=== PATIENT | male | born 2005 | race Caucasian/White ===

== ENCOUNTER 2024-05-08 12:43 | Inpatient (IN) ==
[2024-05-08 13:38] LABS: Basophils # (auto) 0.04 K/uL (0.00-0.20); Basophils % (auto) 0.6 %; Eosinophils # (auto) 0.08 K/uL (0.00-0.50); Eosinophils % (auto) 1.2 %; Hematocrit (blood only) 49.8 % (42.0-52.0); Immature Granulocytes # (auto) 0.01 K/uL (0.01-0.20); Immature Granulocytes % (auto) 0.2 %; Lymphocytes # (auto) 2.57 K/uL (1.20-3.40); Lymphocytes % (auto) 39.8 %; Mean Corpuscular Hemoglobin 28.5 pg (25.0-34.0); Mean Corpuscular Hgb Conc 34.1 g/dL (32.0-36.0); Mean Corpuscular Volume 83.4 fL (80.0-100.0); Mean Platelet Volume 9.7 fL (9.4-12.4); Monocytes # (auto) 0.45 K/uL (0.11-0.59); Neutrophils # (auto) 3.31 K/uL (1.40-6.50); Neutrophils % (auto) 51.2 %; Platelet Count 344 K/uL (130-400); RDW Coefficient of Variation 11.4 % (11.5-14.5); RDW Standard Deviation 34.2 fL (36.4-46.3); Red Blood Count 5.97 M/uL (4.70-6.10); White Blood Count 6.46 K/ul (4.8-10.8)
[2024-05-08 13:39] LABS: Appearance Urine Clear (Clear); Bilirubin Urine Negative (Negative); Blood Urine Negative (Negative); Color Urine Yellow; Glucose Urine UA Negative (Negative); Ketones Urine Negative (Negative); Leukocyte Esterase Urine Negative (Negative); Nitrite Urine Negative (Negative); Protein Urine Negative (Negative); Specific Gravity Urine 1.006 (1.000-1.030); Urobilinogen Urine Negative (Negative); pH Urine 7.5 (4.5-7.5)
[2024-05-08 13:53] LABS: Albumin Globulin Ratio 1.9 (0.9-2); Albumin Level 4.6 gm/dl (3.4-5.0); BUN Creatinine Ratio 13.5 (10-20); Bilirubin,Total 0.4 mg/dl (0.2-1.0); Calcium 9.9 mg/dl (8.6-10.3); Creatinine Clr Calc Pharmacy 126.5 ml/min; Globulin 2.4 gm/dl (2.5-4.0); Potassium 3.6 mmol/L (3.5-5.1)
[2024-05-08 13:54] LABS: Acetaminophen < 3 ug/ml (10-30); Salicylate < 3.0 mg/dl (3.0-30)
--- NOTE | 2024-05-08 13:57 | Emergency Department Note ---
Impression & Plan Intentional benzodiazepine overdose, Altered mental status, Alcoholic intoxication ED Provider Note NAME: RAS DAVIS AGE: 18 SEX: M : 2005 ARRIVES VIA: Ambulance INFORMANT: Patient, ED PROVIDER(S): Evy Guerra MD CHIEF COMPLAINT: Overdose HPI: This a 18-year-old man presented for overdose. Patient states that he took over 100 pills of benzodiazepines. He notes that he had a prescription of 120 and took 100 of these. This was an attempt to end his life. He gently also took a few Seroquel. he took a few shots of whiskey. ROS: See above HPI for pertinent positives & negatives. A total of 10 systems reviewed and were otherwise negative. PHYSICAL EXAMINATION: General: Fatigued but arousable Head: Normocephalic and atraumatic Eyes: Normal inspection, extraocular muscles intact, PERRLA Ear, nose, throat: Normal external exam Neck: Normal range of motion Respiratory: lungs clear to auscultation bilaterally Cardiovascular: Regular rate/rhythm, no murmur GI: soft, nontender, no guarding or rebound Extremities: nontender, moves all extremities Neuro: Fatigued, arousable, moves all extremities Skin: Warm, dry, and intact MEDICAL DECISION MAKING: This is a 18-year-old male presenting for intentional overdose. Patient states he took multiple doses of benzodiazepines, over 100 pills. At this time he is fatigued but arousable, able to tell me his name. He is not have chemical airway concerns at this time. Will closely monitor this. Otherwise we will look for coingestions with Tylenol, salicylates. -ECG independently interpreted by me with normal sinus rhythm, rate of 99, normal axis, normal SD, normal QRS, normal QTc, no ST segment elevations consistent with STEMI criteria -Bloodwork is reviewed showing no significant abnormalities. His alcohol level is only slightly elevated at 29. Otherwise he is COVID-19 negative. Negative urinalysis and UDS. -Patient reassessed multiple times without significant change in mentation. He continues to have a stable airway -Patient care discussed with poison control who recommends observation -Discussed care with parents as well by patient current status -Patient will require admission. Discussed care with Dr. Hzael Differential diagnosis: Intentional overdose, benzodiazepine overdose, cervical overdose ER treatment provided: See below Independent History obtained from: Mother, father, remained Diagnostics interpreted by me: ECG: See above Cardiac Monitoring: An order was placed for continuous cardiac monitoring. The monitor shows a rate of 89 with sinus rhythm. Laboratory studies: As stated above and show below. Imaging studies: See below. 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: No Beliefs That Will Affect Care: None Current Living Situation: Family Other Information That Helps Us Care for You: No Feels Safe at Home: Yes Safety Concerns: Feels Safe At This Time Assistive Devices: None Home Meds Home Medications Medication Instructions Recorded Confirmed nortriptyline 25 mg capsule 25 mg PO DAILY 05/08/24 05/08/24 perphenazine 6 mg PO TID 05/08/24 05/08/24 Results & Data (ED) Vital Signs Vital Signs - 24 hr 05/08/24 13:01 05/08/24 13:17 05/08/24 13:18 Temperature 36.5 C Temperature Source Oral Pulse Rate 117 H 98 H Pulse Rate [Apical] 98 H Pulse Rhythm [Apical] Pulse Strength [Apical] Respiratory Rate 13 12 Respiratory Effort / Characteristics Non-Labored Spontaneous Non-Labored Spontaneous Respiratory Depth Normal Normal Respiratory Pattern Regular Regular Blood Pressure 125/69 Blood Pressure [Left Arm] 119/66 Blood Pressure Mean 87 Blood Pressure Mean [Left Arm] 83 Blood Pressure Position Semi-fowlers Blood Pressure Position [Left Arm] Pulse Oximetry 96 95 Oxygen Delivery Method Room Air Room Air Sepsis Recent Fever Within 48 Hours No Sepsis New/Unexplained Change in Mental Status No Sepsis Action Taken by Nursing No Action Required 05/08/24 14:00 05/08/24 14:00 05/08/24 14:30 Temperature Temperature Source Pulse Rate Pulse Rate [Apical] 94 H 80 87 Pulse Rhythm [Apical] Regular Pulse Strength [Apical] Normal Respiratory Rate 16 14 15 Respiratory Effort / Characteristics Non-Labored Non-Labored Spontaneous Non-Labored Spontaneous Respiratory Depth Normal Normal Normal Respiratory Pattern Regular Regular Blood Pressure Blood Pressure [Left Arm] 121/66 121/66 107/51 L Blood Pressure Mean Blood Pressure Mean [Left Arm] 84 84 69 Blood Pressure Position Blood Pressure Position [Left Arm] Semi-fowlers Semi-fowlers Pulse Oximetry 96 95 96 Oxygen Delivery Method Room Air Room Air Room Air Sepsis Recent Fever Within 48 Hours Sepsis New/Unexplained Change in Mental Status Sepsis Action Taken by Nursing 05/08/24 15:30 05/08/24 16:00 Temperature Temperature Source Pulse Rate Pulse Rate [Apical] 84 84 Pulse Rhythm [Apical] Pulse Strength [Apical] Respiratory Rate 16 16 Respiratory Effort / Characteristics Respiratory Depth Respiratory Pattern Blood Pressure Blood Pressure [Left Arm] 99/67 L 104/71 Blood Pressure Mean Blood Pressure Mean [Left Arm] 77 82 Blood Pressure Position Blood Pressure Position [Left Arm] Pulse Oximetry 96 95 Oxygen Delivery Method Room Air Room Air Sepsis Recent Fever Within 48 Hours Sepsis New/Unexplained Change in Mental Status Sepsis Action Taken by Nursing Laboratory Data 05/08/24 13:05 05/08/24 13:05 Lab Results 05/08/24 05/08/24 05/08/24 Range/Units 12:50 13:00 13:05 WBC 6.46 (4.8-10.8) K/ul RBC 5.97 (4.70-6.10) M/uL Hgb 17.0 (14.0-18.0) g/dl Hct 49.8 (42.0-52.0) % MCV 83.4 (80.0-100.0) fL MCH 28.5 (25.0-34.0) pg MCHC 34.1 (32.0-36.0) g/dL RDW Std Deviation 34.2 L (36.4-46.3) fL RDW Coeff of Harvinder 11.4 L (11.5-14.5) % Plt Count 344 (130-400) K/uL MPV 9.7 (9.4-12.4) fL Immature Gran % (Auto) 0.2 % Neut % (Auto) 51.2 % Lymph % (Auto) 39.8 % [place] % (Auto) 7.0 % Eos % (Auto) 1.2 % Baso % (Auto) 0.6 % Neut # (Auto) 3.31 (1.40-6.50) K/uL Lymph # (Auto) 2.57 (1.20-3.40) K/uL [place] # (Auto) 0.45 (0.11-0.59) K/uL Eos # (Auto) 0.08 (0.00-0.50) K/uL Baso # (Auto) 0.04 (0.00-0.20) K/uL Immature Gran # (Auto) 0.01 (0.01-0.20) K/uL ABG pH (7.35-7.45) ABG pCO2 (35-46) mmHg ABG pO2 (80-95) mmHg ABG HCO3 (19-24) mmol/L ABG O2 Saturation (90-95) % ABG Base Excess (-9-1.8) mEq/L Earle Test (Pos) Oxygen Given Sodium 138 (136-145) mmol/L Potassium 3.6 (3.5-5.1) mmol/L Chloride 106 (98-107) mmol/L Carbon Dioxide 22 (21-32) mmol/L Anion Gap 10 (3-11) BUN 12 (6-23) mg/dl Creatinine 0.89 (0.6-1.4) mg/dl Est Cr Clr Drug Dosing 126.5 ml/min eGFR 126.60 BUN/Creatinine Ratio 13.5 (10-20) Glucose 106 H (70-99(Fasting)) mg/dl Calcium 9.9 (8.6-10.3) mg/dl Total Bilirubin 0.4 (0.2-1.0) mg/dl AST 20 (13-39) U/L ALT 28 (7-52) U/L Alkaline Phosphatase 107 H (34-104) U/L Total Protein 7.0 (6.0-8.3) gm/dl Albumin 4.6 (3.4-5.0) gm/dl Globulin 2.4 L (2.5-4.0) gm/dl Albumin/Globulin Ratio 1.9 (0.9-2) TSH 3.000 (0.300-4.500) uIu/ml Urine Color Yellow Urine Appearance Clear (Clear) Urine pH 7.5 (4.5-7.5) Ur Specific [place] 1.006 (1.000-1.030) Urine Protein Negative (Negative) Urine Glucose (UA) Negative (Negative) Urine Ketones Negative (Negative) Urine Blood Negative (Negative) Urine Nitrite Negative (Negative) Urine Bilirubin Negative (Negative) Urine Urobilinogen Negative (Negative) Ur Leukocyte Esterase Negative (Negative) Salicylates < 3.0 L (3.0-30) mg/dl Urine Opiates Screen Neg (Neg) Ur Methadone, Qual Neg (Neg) Urine Fentanyl Screen Neg (Neg) Acetaminophen < 3 L (10-30) ug/ml Urine Barbiturates Neg (Neg) Ur Phencyclidine (PCP) Neg (Neg) U Amphetamin/Meth Scrn Neg (Neg) MDMA (Ecstasy) Screen Neg (Neg) U Benzodiazepines Scrn Neg (Neg) Ur Cocaine Metabolite Neg (Neg) U Marijuana (THC) Screen Neg (Neg) Ethyl Alcohol mg/dL 29.2 H (<10.0) mg/dl SARS-CoV-2, RNA, NAAT NEGATIVE (NEGATIVE) 05/08/24 Range/Units 15:55 WBC (4.8-10.8) K/ul RBC (4.70-6.10) M/uL Hgb (14.0-18.0) g/dl Hct (42.0-52.0) % MCV (80.0-100.0) fL MCH (25.0-34.0) pg MCHC (32.0-36.0) g/dL RDW Std Deviation (36.4-46.3) fL RDW Coeff of Harvinder (11.5-14.5) % Plt Count (130-400) K/uL MPV (9.4-12.4) fL Immature Gran % (Auto) % Neut % (Auto) % Lymph % (Auto) % [place] % (Auto) % Eos % (Auto) % Baso % (Auto) % Neut # (Auto) (1.40-6.50) K/uL Lymph # (Auto) (1.20-3.40) K/uL [place] # (Auto) (0.11-0.59) K/uL Eos # (Auto) (0.00-0.50) K/uL Baso # (Auto) (0.00-0.20) K/uL Immature Gran # (Auto) (0.01-0.20) K/uL ABG pH 7.42 (7.35-7.45) ABG pCO2 40 (35-46) mmHg ABG pO2 90 (80-95) mmHg ABG HCO3 26 H (19-24) mmol/L ABG O2 Saturation 98.6 H (90-95) % ABG Base Excess 1.3 (-9-1.8) mEq/L Earle Test Pos (Pos) Oxygen Given ROOM AIR Sodium (136-145) mmol/L Potassium (3.5-5.1) mmol/L Chloride (98-107) mmol/L Carbon Dioxide (21-32) mmol/L Anion Gap (3-11) BUN (6-23) mg/dl Creatinine (0.6-1.4) mg/dl Est Cr Clr Drug Dosing ml/min eGFR BUN/Creatinine Ratio (10-20) Glucose (70-99(Fasting)) mg/dl Calcium (8.6-10.3) mg/dl Total Bilirubin (0.2-1.0) mg/dl AST (13-39) U/L ALT (7-52) U/L Alkaline Phosphatase (34-104) U/L Total Protein (6.0-8.3) gm/dl Albumin (3.4-5.0) gm/dl Globulin (2.5-4.0) gm/dl Albumin/Globulin Ratio (0.9-2) TSH (0.300-4.500) uIu/ml Urine Color Urine Appearance (Clear) Urine pH (4.5-7.5) Ur Specific [place] (1.000-1.030) Urine Protein (Negative) Urine Glucose (UA) (Negative) Urine Ketones (Negative) Urine Blood (Negative) Urine Nitrite (Negative) Urine Bilirubin (Negative) Urine Urobilinogen (Negative) Ur Leukocyte Esterase (Negative) Salicylates (3.0-30) mg/dl Urine Opiates Screen (Neg) Ur Methadone, Qual (Neg) Urine Fentanyl Screen (Neg) Acetaminophen (10-30) ug/ml Urine Barbiturates (Neg) Ur Phencyclidine (PCP) (Neg) U Amphetamin/Meth Scrn (Neg) MDMA (Ecstasy) Screen (Neg) U Benzodiazepines Scrn (Neg) Ur Cocaine Metabolite (Neg) U Marijuana (THC) Screen (Neg) Ethyl Alcohol mg/dL (<10.0) mg/dl SARS-CoV-2, RNA, NAAT (NEGATIVE) Administered Medications Lactated Ringer's (Lr) 1,000 mls @ 125 mls/hr IV .Q8H SHIRLEY Stop: 05/09/24 18:59 Last Admin: 05/08/24 19:12 Dose: 125 mls/hr Documented By: K[facility] Imaging Data Radiologist's Impression: Chest X-Ray 05/08/24 15:50 EXAM: Radiograph of the Chest 1 View INDICATION: Overdose. TECHNIQUE: Frontal view of the chest. COMPARISON: No relevant prior studies available. FINDINGS: Lungs and pleural spaces: No consolidation or pulmonary edema. No pleural effusion or pneumothorax. Heart: Shape and configuration within normal limits allowing for technique. Mediastinum: Normal contour. Bones/joints: No fracture, erosion or dislocation. Soft tissues: No abnormality noted. No radiopaque foreign body noted. Upper abdomen: No abnormality noted. IMPRESSION: No abnormality noted. ACT 112: Negative or not required by law. Electronically signed by Aditi Stein 05-08-2024 4:34 PM Discharge Plan Visit Data Chief Complaint: Mental Health Evaluation Stated Complaint: OVERDOSE, MHID ED Provider: Evy Guerra Discharge Problem: Intentional benzodiazepine overdose, Altered mental status, Alcoholic intoxication Patient Disposition: Admitted As Inpatient Discharge Instructions Interventions: ED Discharge Assessment Last Done: 05/08/24 17:22
[2024-05-08 14:24] LABS: Amphetamines+Metham, Urine Neg (Neg); Barbiturates, Urine Neg (Neg); Benzodiazepine, Urine Neg (Neg); Cocaine, Urine Neg (Neg); Fentanyl, Urine Neg (Neg); MDMA (Ecstacy), Urine Neg (Neg); Marijuana, Urine Neg (Neg); Methadone, Urine Neg (Neg); Opiate, Urine Neg (Neg); Phencyclidine, Urine Neg (Neg)
--- NOTE | 2024-05-08 15:56 | History & Physical Report ---
Date of Service May 08, 2024 Assessment & Plan (1) Intentional benzodiazepine overdose: Plan: patient's roommate reported that patient took over 100 pills of benzodiazepines intentional - patient lethargic although responds to verbal stimuli on admission - PDMP shows recent prescription of clonazepam 1 mg x 90 days pills 05/03 and lorazepam 0.5 Mg x 60 pills 04/29 - Benzodiazepine Urine level negative, alcohol level 29.2 on admission - EKG showed NSR - ABG WNL, CXR showed no abnormalities - psych consulted - Admit to telemetry with end-tidal CO2 monitoring - ABG prn - repeat EKG in 6-8 hrs as per poison control recommendations - hold psych medications (verified with forest fire prevention specialist psychiatrist) - unconfirmed doses for Seroquel and guanfacine Update poison control with any acute concerns or issues, change in mental status, or change in labs. Plan VTE ppx: SCDs Diet: can have regular diet when more awake, too lethargic at this time Code status: full, unable to discuss with patient given lethargy Dispo: PCU/tele with end tidal CO2 monitoring Admission and Anticipated Discharge Date Admission Date: 05/08/24 History of Present Illness Chief Complaint: mental health eval Primary Care Provider: NO PCP Patient is a 18-year-old male that presents after taking over 100 pills of benzodiazepines. patient was lethargic although responds to verbal stimuli on exam. Patient's mother and father at bedside. He and his family are from the [place] area, he is a [employer] student. His mother stated that she Him to visit on Monday because he started clonazepam and will seemed overmedicated on the phone. She spoke with his psychiatrist who made some medication adjustments and he seemed to be doing better today 05/08. She decided to leave to head back home since he was doing better, he then texted her and said that one of his classes added another test to the semester and he was stressed about it. About an hour later his father received a phone call that was alarming, the patient just kept repeating "I love you dad ". The family and the patient's roommate then found out that he took over 100 benzodiazepines, as per the patient's roommate. They then called 911 and his parents came into town. The patient has never had a suicidal attempt like this in the past. He does have a psychiatrist and therapist in [place] who are both aware of current condition. The patient's mother stated that he had some recent medication changes, in the past few days he went down from 5 medications to 3 medications with an addition of melatonin at night. The following list was provided although not all doses are confirmed: guanfacine, Seroquel, perphenazine, nortriptyline, clonazepam, lorazepam. As per PDMP the patient was prescribed lorazepam 0.5 Mg x 60 pills on 04/29 and clonazepam 1 mg x 90 pills on 05/03. His family was updated at bedside. Spoke with poison control, they were updated regarding patient's status. They recommended telemetry monitoring along with the repeat EKG in 6 to 8 hours. If any changes occur and the patient's lab work or mental status, please call them with an update and for recommendations. Home Medications Medication Instructions Recorded Confirmed Type nortriptyline 25 mg capsule 25 mg PO DAILY 05/08/24 05/08/24 History perphenazine 6 mg PO TID 05/08/24 05/08/24 History Past Med/Surg History Problem List (Updated 05/08/24 @ 19:41 by Evy Guerra MD) Alcoholic intoxication (Acute) Altered mental status (Acute) Intentional benzodiazepine overdose (Acute) Social History Smoking Status: Current every day smoker Tobacco Type: Cigarettes Hx Alcohol Use: Yes Alcohol type: hard liquor Hx Substance Use: No Preferred Language: Frisian Top Spotter Required: No Beliefs That Will Affect Care: None Current Living Situation: Family Other Information That Helps Us Care for You: No Feels Safe at Home: Yes Safety Concerns: Feels Safe At This Time Assistive Devices: None Review of Systems Review of Systems: Unable to perform given patient lethargic Physical Exam Physical Exam: The patient is lethargic, responds to verbal stimuli, in no acute distress. Non- toxic appearing. HEENT- mucous membranes moist. Hearing grossly intact. Heart-normal S1 and S2. No murmurs, rubs or gallops. Lungs-clear bilaterally, no respiratory distress, no accessory muscle use. Abdomen-normal bowel sounds and soft. No ascites noted. Extremities- no clubbing, cyanosis, or edema. Results & Data Results & Data Vital Signs (Past 12 Hours) Vital Signs Temp Pulse Pulse Resp BP BP Pulse Ox 05/08/24 15:30 84 16 99/67 L 96 05/08/24 14:30 87 15 107/51 L 96 05/08/24 14:00 80 14 121/66 95 05/08/24 14:00 94 H 16 121/66 96 05/08/24 13:18 98 H 05/08/24 13:17 98 H 12 119/66 95 05/08/24 13:01 36.5 C 117 H 13 125/69 96 O2 Del Method 05/08/24 15:30 Room Air 05/08/24 14:30 Room Air 05/08/24 14:00 Room Air 05/08/24 14:00 Room Air 05/08/24 13:18 05/08/24 13:17 Room Air 05/08/24 13:01 Room Air Code Status & VTE Plan Code Status Full VTE Prophylaxis Plan VTE Prophylaxis will be ordered: Yes Supervising Physician Co-Signing Physician Notes I personally saw and examined the patient. I independently reviewed the labs, EKG, imaging, problem list, medication list, past medical history and family history. I verified all daniels points and agree with Anupama Schneider PA-C with the following exceptions and/or additions: 18 year old male presents to the ER following intentional overdose of benzodiazepines O/E Alert to voice, not orientated x3, HS RRR, no murmurs, Chest CTAB, Abdo SNT A/P Intentional benzodiazepine overdose - (presumably clonazepam that he was recently prescribed +/- lorazepam prescribed 4 days earlier) currently protecting airway (awakes to voice), ABG without hypercapnia, admit for ongoing end tidal CO2 monitoring, poison control contacted for ongoing advice. Consult psychiatry. PG Care Time/CCT Total # of Minutes Spent Total Time Spent with Patient: Total time spent is greater than 50% in coordination of care (as documented) at patient's floor/unit and/or counseling patient: Coding Level of Care Code 19957 INT INP/OBS CARE 2/55MIN Diagnoses Intentional benzodiazepine overdose T42.4X2A Comment updated family and poison control
[2024-05-08 16:09] LABS: Base Excess ABG 1.3 mEq/L (-9-1.8); HCO3 ABG 26 mmol/L (19-24); Oxygen Saturation ABG 98.6 % (90-95); PCO2 ABG 40 mmHg (35-46); PO2 ABG 90 mmHg (80-95); pH ABG 7.42 (7.35-7.45)
[2024-05-08 16:10] LABS: Allen Test Pos (Pos)
--- NOTE | 2024-05-08 16:35 | XRay Report ---
EXAM: Radiograph of the Chest 1 View INDICATION: Overdose. TECHNIQUE: Frontal view of the chest. COMPARISON: No relevant prior studies available. FINDINGS: Lungs and pleural spaces: No consolidation or pulmonary edema. No pleural effusion or pneumothorax. Heart: Shape and configuration within normal limits allowing for technique. Mediastinum: Normal contour. Bones/joints: No fracture, erosion or dislocation. Soft tissues: No abnormality noted. No radiopaque foreign body noted. Upper abdomen: No abnormality noted. IMPRESSION: No abnormality noted. ACT 112: Negative or not required by law. Electronically signed by Aditi Stein 05-08-2024 4:34 PM
[2024-05-08] MEDS: LACTATED RINGER'S 1,000 ML IV SCH (19:12)
[2024-05-09 06:39] LABS: Hematocrit (blood only) 41.9 % (42.0-52.0); Hemoglobin 14.3 g/dl (14.0-18.0); Mean Corpuscular Hemoglobin 28.5 pg (25.0-34.0); Mean Corpuscular Hgb Conc 34.1 g/dL (32.0-36.0); Mean Corpuscular Volume 83.6 fL (80.0-100.0); Mean Platelet Volume 9.6 fL (9.4-12.4); Platelet Count 253 K/uL (130-400); RDW Coefficient of Variation 11.6 % (11.5-14.5); Red Blood Count 5.01 M/uL (4.70-6.10); White Blood Count 8.76 K/ul (4.8-10.8)
--- NOTE | 2024-05-09 06:54 | Hospitalist Progress Note ---
Date of Service May 09, 2024 Assessment & Plan (1) Acute urinary retention: Plan: One episode of acute urinary retention in the setting of TCA overdose Straight catheter inserted for 1000ccs Continue to monitor Plan Intentional benzodiazepine overdose: Plan: patient's roommate reported that patient took over 100 pills of benzodiazepines intentional - patient lethargic although responds to verbal stimuli on admission - PDMP shows recent prescription of clonazepam 1 mg x 90 days pills 05/03 and lorazepam 0.5 Mg x 60 pills 04/29 - Benzodiazepine Urine level negative, alcohol level 29.2 on admission - EKG showed NSR - ABG WNL, CXR showed no abnormalities - psych consulted - Admit to telemetry with end-tidal CO2 monitoring - ABG prn - repeat EKG in 6-8 hrs as per poison control recommendations - hold psych medications (verified with distribution sales manager psychiatrist) - unconfirmed doses for Seroquel and guanfacine - unconfirmed past psychiatric history Update poison control with any acute concerns or issues, change in mental status, or change in labs. Admission and Anticipated Discharge Date Admission Date: May 08, 2024 Supervising Physician Co-Signing Physician Notes Attending Physician Supervision Note: I independently interviewed and examined the patient and verified the daniels history and physical, reviewed labs and image studies and agree with findings and care plan noted above. 18 year old male presents to the ER following intentional overdose of benzodiazepines AAOx3. Regular rate, no resp distress. Intentional benzodiazepine overdose - (presumably clonazepam that he was recently prescribed +/- lorazepam prescribed 4 days earlier). Evaluated by psychiatry - Will need inpatient [facility] admission - agreeable. No longer on 302. Cannot leave AMA. Subjective Pt is a 18 y/o male with an unclear PMH of psychosis who presents to the hospital for a benzodiazapine overdose. As per his ER admission note, he was brought to the ED after a friend called 911 when the patient took over 100 pills of his prescribed benzodiazepines. He also took a few shots of whisky. This was an attempt to end his life. PDMP shows recent prescription of clonazepam 1 mg x 90 days pills 05/03 and lorazepam 0.5 Mg x 60 pills 04/29 Pt responds to voice but still lethargic. Unable to obtain a reliable ROS at the moment. Per nurse, not able to urinate. Pt voices this biggest concerns is not being able to speak and his dry month and lips. Difficulty swallowing/drinking water. Review of Systems Review of Systems: Unable to obtain due to altered mental status. Physical Exam Physical Exam: General: Patient is lethargic, eyes closed, responds to verbal stimuli, in no acute distress. Non-toxic appearing. HEENT- normocephalic, atraumatic Hearing grossly intact. eyes not evaluated Heart-normal S1 and S2. No murmurs, rubs or gallops. Lungs-clear bilaterally, no respiratory distress, no accessory muscle use. Abdomen-normal bowel sounds and soft. Extremities- no clubbing, cyanosis, or edema. Neuro: Oriented to time, place, person and event, immediate and 1 minute 3 world recall intact. Can count backwards from 100 by 7. Normal ROM, normal strength sternocleidomastoids, triceps, and biceps. Normal sensation to light tough in his face, arms, and legs. Results & Data Results & Data Vital Signs (Past 12 Hours) Vital Signs Temp Pulse Pulse Resp BP Pulse Ox O2 Del Method 05/09/24 03:27 36.3 C L 73 16 147/71 H 96 Room Air 05/08/24 23:21 36.8 C 83 16 127/59 L 94 Room Air 05/08/24 21:42 95 H 05/08/24 19:04 36.6 C 72 16 115/63 96 Room Air Resident Activity Tracking Resident Involvement: Resident Care Provided Care Provided: Adult Hospital Medicine Resident Supervision Co-Signing Physician Notes I have seen this patient personally and agree with student Dr Whitlock about the plan with exceptions noted below: Pt drowsy on exam today in the morning but more awake and alert by the afternoon. Diet ordered for him. Pending psych eval at this point for intentional benzodiazepine overdose with suicidal intention. Otherwise, vitals have remained stable and pt has been fairing well. Will obtain more history as pt continues to become more alert.
[2024-05-09 06:56] LABS: Albumin Globulin Ratio 1.8 (0.9-2); BUN Creatinine Ratio 14.3 (10-20); Bilirubin,Total 0.6 mg/dl (0.2-1.0); Calcium 9.3 mg/dl (8.6-10.3); Creatinine Clr Calc Pharmacy 154.7 ml/min; Globulin 2.2 gm/dl (2.5-4.0); Potassium 3.8 mmol/L (3.5-5.1); Total Protein 6.2 gm/dl (6.0-8.3)
[2024-05-09] MEDS: ONDANSETRON INJ 2 MG/ML 2 ML VIAL IV PRN (08:31)
--- NOTE | 2024-05-09 11:14 | Psychiatric Consultation ---
Date of Consultation May 09, 2024 Impression / Recommendations Mckay Bryan is a 18 yo man and [employer] student admitted medically following an intentional overdose suicide attempt. Diagnostically consistent with MDD in the context of recent stressors including academic pressure. Acute risk of self-harm remains elevated and high given suicide attempt requiring medical admission, history of possible prior attempt, impulsivity, limited insight. Given elevated risk of harm to self they meet criteria for inpatient psychiatric care for diagnostic clarification, safety/stabilization, development of additional coping skills, medication management and disposition/safety planning once medically stable. If they do not agree to voluntary treatment at that time they will meet criteria for 302 status based on severity of suicide attempt and ongoing modifiable risk factors. 302 warrant dispositioned as he is agreeable to voluntary inpatient psychiatric treatment once medically stable. Overall, I spent a total of 60 minutes with this case including review of chart records, review of labwork, direct evaluation of the patient at bedside, counseling the patient, discussion of the patient with the Nurse and with the hospitalist provider, discussion with the psychiatric liason during clinical rounds and documentation in the electronic health record. (1) Intentional benzodiazepine overdose: (2) Suicide attempt: Plan -Continue 1-on-1 for risk of harm to self -Do not discharge or allow to leave AMA -Hold psych medications for now -Once medically cleared plan for psychiatric hospitalization (either 201 or 302 status). Psych History Identifying Data 18 yo man with a history of depression admitted medically following suicide attempt via benzodiazepine overdose. Psychiatry consulted for risk assessment and 302 warrant. Chief Complaint "I took a sh*t ton of pills". History of Present Illness Irvin was admitted after taking an estimated ~100 pills of recent clonazepam and lorazepam scripts (clonazepam 1 mg x 90 days pills filled 05/03 and lorazepam 0.5 Mg x 60 pills filled 04/29 ). His mother had recently visited given his increased depression and anxiety and shortly after she returned home he called his father saying "I love you" raising concern he may have tried to harm himself. Police were called and he was brought to the hospital on a 302 petition. He was unable to be assessed for 302 commitment at the time of admission due to somnolence. This morning he remained very sedated. This afternoon at 1407 notified that he was able to participate in 302 assessment. He was A&Ox3. Confirms he took the pills as a suicide attempt. Remains groggy and prefers not to discuss further details. He was reluctant for inpatient psychiatry but did agree to plan for voluntary inpatient psychiatric treatment once medically stable. His father remained at bedside during this conversation per Irvin's preference and request that he not leave. 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 Required: No Beliefs That Will Affect Care: None Current Living Situation: Family Other Information That Helps Us Care for You: No Feels Safe at Home: Yes Safety Concerns: Feels Safe At This Time Assistive Devices: None Physical Exam Psychiatric: Orientation: alert and oriented x 3 Apperance: + disheveled Eye Contact: + fair eye contact Motor Behavior: + psychomotor retardation Speech: + abnormal rate/rhythm/volume of speech (brief, mumbled) Affect: + anxious affect and + irritable affect Mood: + depressed mood and + anxious mood Thought Process: + circumstantial thought process Thought Content: reality based without delusions Suicidal Thoughts: + reports suicidal thought s (s/p serious attempt) Insight: + limited insight Judgment: + limited judgement Vital Signs (Past 24 Hours): Last Vital Signs Temp 36.7 C 05/09/24 10:51 Pulse 81 05/09/24 10:51 Resp 15 05/09/24 10:51 BP 119/58 L 05/09/24 10:51 Pulse Ox 96 05/09/24 10:51 O2 Del Method Room Air 05/09/24 10:51 Results & Data (PSY) Medications Administered Lactated Ringer's (Lr) 1,000 mls @ 125 mls/hr IV .Q8H SHIRLEY Stop: 05/09/24 18:59 Last Admin: 05/09/24 10:32 Dose: 125 mls/hr Documented By: Infusion: 05/09/24 10:27 Dose: Infused Documented By: Admin: 05/09/24 02:27 Dose: 125 mls/hr Documented By: Infusion: 05/09/24 02:27 Dose: Infused Documented By: Admin: 05/08/24 19:12 Dose: 125 mls/hr Documented By: SERENE Ondansetron HCl (Ondansetron Inj 2 Mg/Ml 2 Ml Vial) 4 mg IV Q6H PRN PRN Reason: Nausea And Vomiting Stop: 06/07/24 17:47 Last Admin: 05/09/24 08:31 Dose: 4 mg Documented By: KRISTIE Coding Level of Care Code 42826 IN/OBS CONSULT LVL 4,60M Diagnoses Intentional benzodiazepine overdose T42.4X2A Suicide attempt T14.91XA
[2024-05-09] MEDS ORDERED: SODIUM CHLORIDE 0.65% NA SOLN 45 ML (OCEAN) PRN (14:34)
--- NOTE | 2024-05-09 15:10 | Electrocardiogram Report ---
Test Reason : Blood Pressure : */* mmHG Vent. Rate : 99 BPM Atrial Rate : 99 BPM P-R Int : 148 ms QRS Dur : 86 ms QT Int : 328 ms P-R-T Axes : 63 58 55 degrees QTcB Int : 420 ms Normal sinus rhythm Normal ECG No previous ECGs available Confirmed by Sanjiv Kelley ([id number]) on 05/09/2024 3:10:07 PM Referred By: Confirmed By: Sanjiv Kelley
--- NOTE | 2024-05-09 15:11 | Electrocardiogram Report ---
Test Reason : Blood Pressure : */* mmHG Vent. Rate : 84 BPM Atrial Rate : 84 BPM P-R Int : 152 ms QRS Dur : 84 ms QT Int : 350 ms P-R-T Axes : 82 56 40 degrees QTcB Int : 413 ms Normal sinus rhythm Normal ECG When compared with ECG of 08-May-2024 13:19, No significant change was found Confirmed by Sanjiv Kelley ([id number]) on 05/09/2024 3:10:59 PM Referred By: REFERRED SELF Confirmed By: Sanjiv Kelley
[2024-05-10 06:17] LABS: Hematocrit (blood only) 41.4 % (42.0-52.0); Hemoglobin 14.2 g/dl (14.0-18.0); Mean Corpuscular Hemoglobin 28.8 pg (25.0-34.0); Mean Corpuscular Hgb Conc 34.3 g/dL (32.0-36.0); Mean Platelet Volume 9.5 fL (9.4-12.4); Platelet Count 249 K/uL (130-400); RDW Coefficient of Variation 11.5 % (11.5-14.5); RDW Standard Deviation 35.2 fL (36.4-46.3); Red Blood Count 4.93 M/uL (4.70-6.10); White Blood Count 5.04 K/ul (4.8-10.8)
[2024-05-10 06:29] LABS: Anion Gap 5 (3-11); BUN Creatinine Ratio 12.4 (10-20); Blood Urea Nitrogen 12 mg/dl (6-23); Calcium 9.2 mg/dl (8.6-10.3); Carbon Dioxide 28 mmol/L (21-32); Chloride 108 mmol/L (98-107); Creatinine Clr Calc Pharmacy 133.9 ml/min; Glucose 94 mg/dl (70-99(Fasting)); Sodium 141 mmol/L (136-145)
--- NOTE | 2024-05-10 06:52 | Hospitalist Progress Note ---
Date of Service May 10, 2024 Assessment & Plan (1) Acute urinary retention: Plan: One episode of acute urinary retention in the setting of TCA overdose Straight catheter inserted for 1000ccs Continue to monitor (2) Benzodiazepine (tranquilizer) overdose: Plan: Intentional benzodiazepine overdose: patient's roommate reported that patient took over 100 pills of benzodiazepines - patient is significantly less lethargic vs admissionn - PDMP shows recent prescription of clonazepam 1 mg x 90 days pills 05/03 and lorazepam 0.5 Mg x 60 pills 04/29 - Benzodiazepine Urine level negative, alcohol level 29.2 on admission - EKG showed NSR - repeat EKG in 6-8 hrs as per poison control recommendations - ABG WNL, CXR showed no abnormalities - Admit to telemetry with end-tidal CO2 monitoring - ABG prn - hold psych medications (verified with well service floorperson psychiatrist) - psych consulted: voluntary admission to inpatient, will enforce 302 if patient tries to leave. Update poison control with any acute concerns or issues, change in mental status, or change in labs. (3) Suicide attempt: Plan: Intentional benzodiazepine overdose. Psych consulted plan for voluntary admission to inpatient, enforce 302 if patient tries to leave. Admission and Anticipated Discharge Date Admission Date: May 08, 2024 Supervising Physician Co-Signing Physician Notes Attending Physician Supervision Note: I independently interviewed and examined the patient and verified the daniels history and physical, reviewed labs and image studies and agree with findings and care plan noted above. 18 year old male presented to the ER following intentional overdose of benzodiazepines No new concerns this am. Dad at bedside. vitals noted nad heent nc at mmm breathing unlabored no accessory muscles good effort skin no rashes no pallor or icterus no resp distress. Intentional benzodiazepine overdose - (clonazepam that he was recently prescribed +/- lorazepam prescribed 4 days earlier). Evaluated by psychiatry - Will need inpatient BHU admission - agreeable. No longer on 302. Cannot leave AMA. Subjective Pt is a 18 y/o male with a past medical history of panic disorder, general anxiety disorder, MDD who presents to the hospital for a benzodiazepine overdose. He was brought to the ED after a friend called 911 when the patient took over 100 pills of his prescribed benzodiazepines. His parents were concerned when his therapist from [place] prescribed him of clonazepam 1 mg x 90 days pills 05/03 and lorazepam 0.5 Mg x 60 pills. They visited this part weekend to check on him but left shortly after. This was a confirmed suicide attempt. Pt is more awake today. Speech is still slurred and is resting with his eyes cl osed. He is feeling more aware today, but is 'out of it'. Is lethargic. Has an appetite and is able to drink on his own. Some drooling out of the side of his mouth when he drinks. Pt is frustrated about the dysarthria Has not been able to urinate on his own, straight catheter >1000 ccs. Endorses nausea when standing/moving. Patients father is in the room and confirmed the patients pmh of MDD, panic disorder and anxiety. Review of Systems Review of Systems: Constitutional: No fevers, chills, normal appetite HEENT: No headache, blurred vision or diplopia, no changes in hearing, no dysphagia CV: No chest pain or tightness, no palpitations, no presyncope or syncope Rest: No SOB or dyspnea, no wheezing, no accessory muscle use GI: No vommitting, diarrhea, constipation or abdominal pain : As per HPI MSK: No pain, numbness, or tingling. Physical Exam Physical Exam: General:Lethargic, oriented, no acute distress, HEENT: Normocephalic, PEERL, moist oral mucosa, Cardio: Regular rate and rhythm, no murmur. Resp:Lungs clear to auscultation b/l, no wheezes or rhonchi, GI: Soft and nontender, nondistended, bowel sounds active Skin: Warm, pink, dry, Neuro: Mood-affect congruence. Mentation: Can follow a conversation. Able to spell world backwards, immediate 3 word recall. Oriented to person, place, and event. CN: II-XII intact, no focal deficits Sensation to light touch on face, arms, and legs bilateral and equal throughout Strength 5/5 throughout Results & Data Results & Data Vital Signs (Past 12 Hours) Vital Signs Temp Pulse Pulse Resp BP BP Pulse Ox 05/10/24 05:00 37.5 C 66 18 126/58 L 96 05/10/24 01:15 37.5 C 76 18 104/55 L 95 05/09/24 21:56 96 H 05/09/24 19:34 38.0 C H 68 19 97/61 L 94 O2 Del Method 05/10/24 05:00 Room Air 05/10/24 01:15 Room Air 05/09/24 21:56 05/09/24 19:34 Room Air Resident Activity Tracking Resident Involvement: Resident Care Provided Care Provided: Adult Hospital Medicine Resident Supervision Co-Signing Physician Notes I have personally evaluated this patient and agree with student Dr Whitlock with exceptions noted below; Pt more awake and alert today. Pending inpatient psych placement.
--- NOTE | 2024-05-11 06:52 | Hospitalist Progress Note ---
Date of Service May 11, 2024 Assessment & Plan (1) Acute urinary retention: (2) Benzodiazepine (tranquilizer) overdose: (3) Suicide attempt: Plan Pt is a 18 y/o male with a past medical history of panic disorder, general anxiety disorder, MDD who presents to the hospital for an intentional benzodiazepine overdose. Acute urinary retention - since admission has had several episodes of remarkable urinary retention requiring several straight caths, now with seymour since 05/11 - most likely related directly to multidrug overdose, suspect anticholinergic toxicity - may attempt void trial today or tomorrow Intentional drug overdose, multiple drugs Suicide attempt - patient's roommate reported that patient took over 100 pills of benzodiazepines, pt states he took probably 6 different drugs in large amounts - PDMP shows recent prescription of clonazepam 1 mg x 90 days pills 05/03 and lorazepam 0.5 Mg x 60 pills 04/29 - EKGs have been stable, pt has been lethargic/sedated but otherwise with stable vitals throughout hospital stay - psych consulted and pt is voluntary to inpatient psych admission, but if he should try to leave he will be 302 - pt clearly notes that overdose was a definite suicide attempt Admission and Anticipated Discharge Date Admission Date: May 08, 2024 Supervising Physician Co-Signing Physician Notes Attending Physician Supervision Note: I independently interviewed and examined the patient and verified the daniels history and physical, reviewed labs and image studies and agree with findings and care plan noted above. 18 year old male presented to the ER following intentional overdose of benzodiazepines and possibly other meds Continues to be sleepy. Easily arousable. vitals noted nad heent nc at mmm breathing unlabored no accessory muscles good effort skin no rashes no pallor or icterus no resp distress. Intentional benzodiazepine overdose - (clonazepam that he was recently prescribed +/- lorazepam prescribed 4 days earlier) and ?other medications. Evaluated by psychiatry - Will need inpatient BHU admission - agreeable. No longer on 302. Cannot leave AMA. Urinary retention - seymour placed. Likely from meds he overdosed on. consider voiding trial once sedation clears. Subjective Today, pt awake and alert but fatigued appearing. Fully oriented and aware of his situation. He states medically he is feeling fine. No nausea or vomiting, no chest pain or SOB. He states with the repeat caths for urine he never had any sensation like he needed to go pee. He states on monday he took "probably 6 different medications and a ton of them." He states that he last spoke to his therapist prior to admission last Monday. He states that he had never been on a benzo in the past but when he called his psychiatrist saying his anxiety had gotten very had that was what they decided to give him. He states his psychiatrist told him to split the clonazepam 1mg tablets into 1/4 slices and only take 1/4 of a tablet at a time, "so I figured if I took all of them as full tablets that I would ." No further concerns noted by him at this time. Review of Systems Review of Systems: Per HPI. Physical Exam Physical Exam: General:Alert and oriented, no acute distress, fatigued appearing and sluggish this morning HEENT: Normocephalic, moist oral mucosa, Cardio: Regular rate and rhythm, no murmur, Resp:Lungs clear to auscultation b/l, no wheezes or rhonchi, Skin: Warm, pink, dry, Results & Data Results & Data Vital Signs (Past 12 Hours) Vital Signs Temp Pulse Pulse Resp BP Pulse Ox O2 Del Method 05/11/24 03:24 36.6 C 61 16 120/59 L 97 Room Air 05/10/24 22:55 36.9 C 67 17 120/58 L 96 Room Air 05/10/24 21:45 67 05/10/24 19:29 36.9 C 76 15 127/62 96 Room Air Resident Activity Tracking Resident Involvement: Resident Care Provided Care Provided: Adult Hospital Medicine
[2024-05-11 07:09] LABS: BUN Creatinine Ratio 18.1 (10-20); Calcium 9.5 mg/dl (8.6-10.3); Creatinine Clr Calc Pharmacy 154.3 ml/min; Potassium 3.9 mmol/L (3.5-5.1)
[2024-05-11] MEDS: POLYETHYLENE (MIRALAX) 17 GM PACK PO SCH (09:52)
[2024-05-11] MEDS: POLYETHYLENE (MIRALAX) 17 GM PACK PO ONE (17:20)
[2024-05-12 06:07] LABS: BUN Creatinine Ratio 14.3 (10-20); Calcium 9.5 mg/dl (8.6-10.3); Creatinine Clr Calc Pharmacy 155.3 ml/min; Potassium 3.8 mmol/L (3.5-5.1)
--- NOTE | 2024-05-12 06:59 | Hospitalist Progress Note ---
Date of Service May 12, 2024 Assessment & Plan (1) Acute urinary retention: (2) Benzodiazepine (tranquilizer) overdose: (3) Suicide attempt: Plan Pt is a 18 y/o male with a past medical history of panic disorder, general anxiety disorder, MDD who presents to the hospital for an intentional benzodiazepine overdose. Acute urinary retention - since admission has had several episodes of remarkable urinary retention requiring several straight caths, now with seymour since 05/11 - most likely related directly to multidrug overdose, suspect anticholinergic toxicity - attempt void trial today Intentional drug overdose, multiple drugs Suicide attempt - patient's roommate reported that patient took over 100 pills of benzodiazepines, pt states he took probably 6 different drugs in large amounts - PDMP shows recent prescription of clonazepam 1 mg x 90 days pills 05/03 and lorazepam 0.5 Mg x 60 pills 04/29 - EKGs have been stable, pt has been lethargic/sedated but otherwise with stable vitals throughout hospital stay - psych consulted and pt is voluntary to inpatient psych admission, but if he should try to leave he will be 302 - pt clearly notes that overdose was a definite suicide attempt Admission and Anticipated Discharge Date Admission Date: May 08, 2024 Supervising Physician Co-Signing Physician Notes Attending Physician Supervision Note: I independently interviewed and examined the patient and verified the daniels history and physical, reviewed labs and image studies and agree with findings and care plan noted above. 18 year old male presented to the ER following intentional overdose Able to hold conversations much better but still falls asleep easily. vitals noted nad heent nc at mmm breathing unlabored no accessory muscles good effort skin no rashes no pallor or icterus no resp distress. Intentional benzodiazepine overdose - (seroquel, clonazepam, lorazepam, perphenazine). (His home meds also include nortriptyline but declined taking it). Evaluated by psychiatry - Will need inpatient BHU admission - agreeable. No longer on 302. Cannot leave AMA. Urinary retention - Likely from meds he overdosed on (05/08). initially straight cath used. seymour placed 05/10. Failed voiding trail. will consult urology and place seymour again. Subjective Today, pt states he is feeling well. He states he has maybe urinated a bit so far since the seymour was removed. No complaints otherwise. No nausea or vomiting, no chest pain or SOB. No stated concerns at this point. Review of Systems Review of Systems: Per HPI. Physical Exam Physical Exam: General:Alert and oriented, no acute distress,fatigued and sluggish still today HEENT: Normocephalic, moist oral mucosa, Cardio: Regular rate and rhythm, no murmur, Resp:Lungs clear to auscultation b/l, no wheezes or rhonchi, GI: Soft and nontender, active bowel sounds Skin: Warm, pink, dry, Results & Data Results & Data Vital Signs (Past 12 Hours) Vital Signs Temp Pulse Pulse Resp BP BP Pulse Ox 05/12/24 03:29 36.8 C 64 16 108/49 L 95 05/11/24 22:56 36.8 C 71 16 121/62 96 05/11/24 21:55 69 O2 Del Method 05/12/24 03:29 Room Air 05/11/24 22:56 Room Air 05/11/24 21:55 Resident Activity Tracking Resident Involvement: Resident Care Provided Care Provided: Adult Hospital Medicine
--- NOTE | 2024-05-12 08:05 | Electrocardiogram Report ---
Test Reason : Blood Pressure : */* mmHG Vent. Rate : 76 BPM Atrial Rate : 76 BPM P-R Int : 160 ms QRS Dur : 90 ms QT Int : 354 ms P-R-T Axes : 46 41 34 degrees QTcB Int : 398 ms Normal sinus rhythm Nonspecific ST abnormality Abnormal ECG When compared with ECG of 09-May-2024 18:18, No significant change was found Confirmed by Otilio Acevedo ([id number]) on 05/12/2024 8:05:38 AM Referred By: REFERRED SELF Confirmed By: Otilio Acevedo
--- NOTE | 2024-05-12 08:06 | Electrocardiogram Report ---
Test Reason : Blood Pressure : */* mmHG Vent. Rate : 59 BPM Atrial Rate : 59 BPM P-R Int : 196 ms QRS Dur : 92 ms QT Int : 392 ms P-R-T Axes : 80 59 42 degrees QTcB Int : 388 ms Sinus bradycardia Early repolarization Otherwise normal ECG When compared with ECG of 10-May-2024 19:19, No significant change was found Confirmed by Otilio Acevedo ([id number]) on 05/12/2024 8:06:10 AM Referred By: REFERRED SELF Confirmed By: Otilio Acevedo
--- NOTE | 2024-05-12 08:07 | Electrocardiogram Report ---
Test Reason : Blood Pressure : */* mmHG Vent. Rate : 61 BPM Atrial Rate : 61 BPM P-R Int : 198 ms QRS Dur : 92 ms QT Int : 384 ms P-R-T Axes : 75 55 40 degrees QTcB Int : 386 ms Normal sinus rhythm Early repolarization When compared with ECG of 11-May-2024 06:22, No significant change was found Confirmed by Otilio Acevedo ([id number]) on 05/12/2024 8:07:31 AM Referred By: REFERRED SELF Confirmed By: Otilio Acevedo
[2024-05-12] MEDS: ACETAMINOPHEN 325 MG TAB PO PRN (16:35)
[2024-05-13] MEDS: Patient's ALLERGY Info needs ENTERED STA (01:25)
--- NOTE | 2024-05-13 06:45 | Hospitalist Progress Note ---
Date of Service May 13, 2024 Assessment & Plan (1) Acute urinary retention: (2) Benzodiazepine (tranquilizer) overdose: (3) Suicide attempt: Plan Pt is a 18 y/o male with a past medical history of panic disorder, general anxiety disorder, MDD who presents to the hospital for an intentional benzodiazepine overdose. Acute urinary retention - since admission has had several episodes of remarkable urinary retention requiring several straight caths, now with seymour since 05/11 - most likely related directly to multidrug overdose, suspect anticholinergic toxicity - seymour replaced yesterday due to continued retention, urology consulted and pending Intentional drug overdose, multiple drugs Suicide attempt - patient's roommate reported that patient took over 100 pills of benzodiazepines, pt states he took probably 6 different drugs in large amounts - PDMP shows recent prescription of clonazepam 1 mg x 90 days pills 05/03 and lorazepam 0.5 Mg x 60 pills 04/29 - EKGs have been stable, pt has been lethargic/sedated but otherwise with stable vitals throughout hospital stay - psych consulted and pt is voluntary to inpatient psych admission, but if he should try to leave he will be 302 - pt clearly notes that overdose was a definite suicide attempt Admission and Anticipated Discharge Date Admission Date: May 08, 2024 Supervising Physician Co-Signing Physician Notes I personally examined the patient and verified all daniels points of history and exam, discussed case, and agree with decision making with Dr Harris still feels woozy and dizzy, blurry vision. also still urinary retention. vitals noted, looks mildly unsteady pupils still somewhat dilated. breathing unlabored no distress, mentation intact. Intentional benzodiazepine overdose - -will need inpatient -psychiatry following -dispo once he voids Urinary retention - -still with seymour cath -blame anticholinergics -hopefully voids soon otherwise as above Subjective Today, pt states he is feeling fine. No chest pain or SOB. Good appetite. He states he is just a little annoyed at having the seymour again. No further concerns noted at this time. Review of Systems Review of Systems: Per HPI. Physical Exam Physical Exam: General:Alert and oriented, no acute distress, fatigued but more lively today HEENT: Normocephalic, moist oral mucosa, Cardio: Regular rate and rhythm, no murmur, Resp:Lungs clear to auscultation b/l, no wheezes or rhonchi, GI: Soft and nontender, active bowel sounds Skin: Warm, pink, dry, Results & Data Results & Data Vital Signs (Past 12 Hours) Vital Signs Temp Pulse Pulse Resp BP BP Pulse Ox 05/13/24 03:30 36.8 C 67 18 104/59 L 97 05/12/24 22:58 36.7 C 62 16 109/56 L 96 05/12/24 21:40 61 05/12/24 18:51 36.8 C 60 19 132/73 97 O2 Del Method 05/13/24 03:30 Room Air 05/12/24 22:58 Room Air 05/12/24 21:40 05/12/24 18:51 Room Air Resident Activity Tracking Resident Involvement: Resident Care Provided Care Provided: Adult Hospital Medicine
[2024-05-13 08:02] LABS: BUN Creatinine Ratio 10.5 (10-20); Calcium 9.8 mg/dl (8.6-10.3); Creatinine Clr Calc Pharmacy 132.9 ml/min; Potassium 3.9 mmol/L (3.5-5.1)
--- NOTE | 2024-05-13 09:42 | Urology Consultation ---
Date of Consultation May 13, 2024 Assessment & Plan (1) Acute urinary retention: 18 yo/M admitted for intentional overdose with benzodiazepines. He developed urinary retention requiring straight catheterization and then Hudson catheter. Urology is consulted regarding urinary retention. Urinary retention likely secondary to medication effect and constipation He failed voiding trial yesterday, catheter replaced Recommend maintain Hudson catheter for now Recommend bowel regimen Continue ambulation Ideally maintain the catheter for a few more days Can attempt voiding trial again in a few days if constipation has resolved If he is unable to void, then replace the catheter Continue other medical management per hospital and psych services will sign off, recall as needed History of Present Illness Attending Physician: Donaldo Norton, History of Present Illness This is a 18-year-old male who was admitted on 05/08/2024 for intentional overdose with benzodiazepines. Since admission, he required multiple straight catheterizations. Hudson catheter was placed on 05/10. He had a void trial on 05/12, but was unable to void and catheter was replaced. Urology is consulted for urinary retention. Patient is currently afebrile with stable vitals. Lab work reviewedcreatinine 0.95 today, WBC 5.04, Hgb 14.2 (05/10). Urinalysis on arrival was negative. Patient seen and examined at bedside this morning. He is resting in bed, arouses easily to speech. 1:1 sitter at bedside. He reports episode of emesis overnight, some nausea at present. Reports low appetite. Has not had a substantial BM since arrival. Denies pain at present. Generally tolerating Hudson. No dysuria or hematuria. He has been ambulating. No fever or chills. No prior history of urinary retention. No prior urology evaluations. Allergies Allergy/AdvReac Type Severity Reaction Status Date / Time No Known Allergies Allergy Unverified 05/12/24 16:17 Home Medications Medication Instructions Recorded Confirmed Type nortriptyline 25 mg capsule 25 mg PO DAILY 05/08/24 05/08/24 History perphenazine 6 mg PO TID 05/08/24 05/08/24 History Patient History Social History Smoking Status: Current every day smoker Tobacco Type: Cigarettes Hx Alcohol Use: Yes Alcohol type: hard liquor Hx Substance Use: No Preferred Language: East [place]orese Communication Ability: Impaired Toe Stripper Required: No Beliefs That Will Affect Care: None Current Living Situation: Family Other Information That Helps Us Care for You: No Feels Safe at Home: Yes Safety Concerns: Feels Safe At This Time Assistive Devices: None Review of Systems Review of Systems: All systems reviewed & are unremarkable except as noted in HPI & below Physical Exam Constitutional: well developed and well nourished; no acute distress Respiratory: normal respiratory effort; no respiratory distress and no labored breathing Gastrointestinal (Abdomen): Inspection/Auscultation: abdomen normal to inspection Musculoskeletal: Head/Neck/Chest: normocephalic Neurologic: moves all extremities and awake Psychiatric: Orientation: alert and oriented x 3 Genitourinary: Hudson draining clear yellow urine Results & Data Vital Signs (Past 12 Hours) Vital Signs Temp Pulse Pulse Resp BP BP Pulse Ox 05/13/24 07:02 36.6 C 65 16 105/57 L 96 05/13/24 03:30 36.8 C 67 18 104/59 L 97 05/12/24 22:58 36.7 C 62 16 109/56 L 96 05/12/24 21:40 61 O2 Del Method 05/13/24 07:02 Room Air 05/13/24 03:30 Room Air 05/12/24 22:58 Room Air 05/12/24 21:40 PG Care Time/CCT Total # of Minutes Spent Total Time Spent with Patient: Total time spent is greater than 50% in coordination of care (as documented) at patient's floor/unit and/or counseling patient: Coding Level of Care Code 84839 IN/OBS CONSULT LVL 3,45M Diagnoses Acute urinary retention R33.8
--- NOTE | 2024-05-13 13:41 | Electrocardiogram Report ---
Test Reason : Blood Pressure : */* mmHG Vent. Rate : 63 BPM Atrial Rate : 63 BPM P-R Int : 182 ms QRS Dur : 96 ms QT Int : 382 ms P-R-T Axes : 76 48 27 degrees QTcB Int : 390 ms Poor data quality, interpretation may be adversely affected Normal sinus rhythm Early repolarization When compared with ECG of 12-May-2024 06:07, No significant change was found Confirmed by Otilio Acevedo ([id number]) on 05/13/2024 1:41:00 PM Referred By: REFERRED SELF Confirmed By: Otilio Acevedo
--- NOTE | 2024-05-13 13:41 | Electrocardiogram Report ---
Test Reason : Blood Pressure : */* mmHG Vent. Rate : 77 BPM Atrial Rate : 77 BPM P-R Int : 188 ms QRS Dur : 86 ms QT Int : 358 ms P-R-T Axes : 87 74 68 degrees QTcB Int : 405 ms Normal sinus rhythm Possible Acute pericarditis Abnormal ECG When compared with ECG of 08-May-2024 19:32, No significant change was found Confirmed by Otilio Acevedo ([id number]) on 05/13/2024 1:40:46 PM Referred By: REFERRED SELF Confirmed By: Otilio Acevedo
--- NOTE | 2024-05-13 13:41 | Electrocardiogram Report ---
Test Reason : Blood Pressure : */* mmHG Vent. Rate : 80 BPM Atrial Rate : 80 BPM P-R Int : 144 ms QRS Dur : 82 ms QT Int : 360 ms P-R-T Axes : 74 66 45 degrees QTcB Int : 415 ms Normal sinus rhythm Possible Left atrial enlargement Early repolarization Borderline ECG When compared with ECG of 08-May-2024 16:34, No significant change was found Confirmed by Otilio Acevedo ([id number]) on 05/13/2024 1:40:32 PM Referred By: REFERRED SELF Confirmed By: Otilio Acevedo
--- NOTE | 2024-05-13 17:16 | Billing Data ---
Date of Service May 13, 2024 Coding Level of Care Code 23025 SUB INP/OBS CARE MIN
--- NOTE | 2024-05-13 17:17 | Billing Data ---
Date of Service May 13, 2024 Coding Level of Care Code 54971 SUB INP/OBS CARE MIN
[2024-05-13] MEDS: POLYETHYLENE (MIRALAX) 17 GM PACK PO SCH (22:02)
[2024-05-14 06:39] LABS: BUN Creatinine Ratio 11.6 (10-20); Calcium 9.8 mg/dl (8.6-10.3); Creatinine Clr Calc Pharmacy 146.8 ml/min; Potassium 4.1 mmol/L (3.5-5.1)
--- NOTE | 2024-05-14 06:41 | Hospitalist Progress Note ---
Date of Service May 14, 2024 Assessment & Plan (1) Acute urinary retention: (2) Benzodiazepine (tranquilizer) overdose: (3) Suicide attempt: Plan Pt is a 18 y/o male with a past medical history of panic disorder, general anxiety disorder, MDD who presents to the hospital for an intentional benzodiazepine overdose. Acute urinary retention - since admission has had several episodes of remarkable urinary retention requiring several straight caths, now with seymour since 05/11 - most likely related directly to multidrug overdose, suspect anticholinergic toxicity - urology consulted; will reattempt void trial today, Intentional drug overdose, multiple drugs Suicide attempt - patient's roommate reported that patient took over 100 pills of benzodiazepines, pt states he took probably 6 different drugs in large amounts - PDMP shows recent prescription of clonazepam 1 mg x 90 days pills 05/03 and lorazepam 0.5 Mg x 60 pills 04/29 - EKGs have been stable, pt has been lethargic/sedated but otherwise with stable vitals throughout hospital stay - psych consulted and pt is voluntary to inpatient psych admission, but if he should try to leave he will be 302 - pt clearly notes that overdose was a definite suicide attempt Admission and Anticipated Discharge Date Admission Date: May 08, 2024 Supervising Physician Co-Signing Physician Notes I personally examined the patient and verified all daniels points of history and exam, discussed case, and agree with decision making with Dr Harris see dc summary done by me as progress note attestation surrogate. thought pt was leaving but psych requested one more night of medical observation re urinary retention Subjective Today, pt states he is feeling okay. No nausea or vomiting. No chest pain or SOB. No concerned noted, still just a bit frustrated at still having a seymour in place. Otherwise, he states he is going fine. Review of Systems Review of Systems: Per HPI. Physical Exam Physical Exam: General:Alert and oriented, no acute distress, fatigued appearing this morning HEENT: Normocephalic, moist oral mucosa, Cardio: Regular rate and rhythm, no murmur, Resp:Lungs clear to auscultation b/l, no wheezes or rhonchi, GI: Soft and nontender, active bowel sounds Skin: Warm, pink, dry, Results & Data Results & Data Vital Signs (Past 12 Hours) Vital Signs Temp Pulse Pulse Resp BP Pulse Ox O2 Del Method 05/13/24 23:14 36.5 C 60 13 115/63 96 Room Air 05/13/24 22:00 65 05/13/24 19:22 36.8 C 66 12 121/61 96 Room Air Resident Activity Tracking Resident Involvement: Resident Care Provided Care Provided: Adult Hospital Medicine
--- NOTE | 2024-05-14 16:08 | Discharge Summary ---
Discharge Summary Date of Service May 14, 2024 Principal Dx & Hospital Course #1 = Principal Diagnosis (1) Acute urinary retention: (2) Benzodiazepine (tranquilizer) overdose: (3) Suicide attempt: Plan Pt is a 18 y/o male with a past medical history of panic disorder, general anxiety disorder, MDD who presents to the hospital for an intentional benzodiazepine overdose. Acute urinary retention - almost certainly due to medication effects from overdose - took several days, but finally able to void in large volumes with essentially no PVR (~20ml per bladder scan) - stable for BHU/no need for ongoing cath Intentional drug overdose, multiple drugs Suicide attempt - patient's roommate reported that patient took over 100 pills of benzodiazepines, pt states he took probably 6 different drugs in large amounts - PDMP shows recent prescription of clonazepam 1 mg x 90 days pills 05/03 and lorazepam 0.5 Mg x 60 pills 04/29 - EKGs have been stable, pt has been lethargic/sedated but otherwise with stable vitals throughout hospital stay - psych consulted and pt is voluntary to inpatient psych admission, but if he should try to leave he will be 302 - pt clearly notes that overdose was a definite suicide attempt - for ongoing inpatient psych care Notes For Next Care Provider Medication Changes From Visit medication changes per inpatient psychiatry team Admission HPI Per Admitting Provider Patient is a 18-year-old male that presents after taking over 100 pills of benzodiazepines. patient was lethargic although responds to verbal stimuli on exam. Patient's mother and father at bedside. He and his family are from the [place] area, he is a [employer] student. His mother stated that she Him to visit on Monday because he started clonazepam and will seemed overmedicated on the phone. She spoke with his psychiatrist who made some medication adjustments and he seemed to be doing better today 05/08. She decided to leave to head back home since he was doing better, he then texted her and said that one of his classes added another test to the semester and he was stressed about it. About an hour later his father received a phone call that was alarming, the patient just kept repeating "I love you dad ". The family and the patient's roommate then found out that he took over 100 benzodiazepines, as per the patient's roommate. They then called 911 and his parents came into town. The patient has never had a suicidal attempt like this in the past. He does have a psychiatrist and therapist in [place] who are both aware of current condition. The patient's mother stated that he had some recent medication changes, in the past few days he went down from 5 medications to 3 medications with an addition of melatonin at night. The following list was provided although not all doses are confirmed: guanfacine, Seroquel, perphenazine, nortriptyline, clonazepam, lorazepam. As per PDMP the patient was prescribed lorazepam 0.5 Mg x 60 pills on 04/29 and clonazepam 1 mg x 90 pills on 05/03. His family was updated at bedside. Spoke with poison control, they were updated regarding patient's status. They recommended telemetry monitoring along with the repeat EKG in 6 to 8 hours. If any changes occur and the patient's lab work or mental status, please call them with an update and for recommendations. Updated Medication List Medication Instructions Recorded Confirmed Type nortriptyline 25 mg capsule 25 mg PO DAILY 05/08/24 05/08/24 History perphenazine 6 mg PO TID 05/08/24 05/08/24 History Hospital Stay Data Consultations 05/08/24 15:44 ED Decision to Admit Stat 05/08/24 17:48 Consult Psychiatry Routine 05/12/24 13:28 Consult Urology Routine Pending Results Patient Have Any Pending Studies at Discharge: No Discharge Instructions Given to Patient (Per Discharging Provider) ongoing medication management per behavioral health team Total Time Total Time Spent Total Time Spent (In Minutes): <30
--- NOTE | 2024-05-14 16:12 | Billing Data ---
Date of Service May 14, 2024 Coding Level of Care Code 03402 IN/OBS DISCH 30 MIN/LESS
[2024-05-15 06:50] LABS: Calcium 9.8 mg/dl (8.6-10.3); Potassium 4.2 mmol/L (3.5-5.1)
[2024-05-15 06:56] LABS: BUN Creatinine Ratio 13.8 (10-20); Creatinine Clr Calc Pharmacy 134.3 ml/min
[2024-05-15 07:59] VITALS: TEMP 97.9
--- NOTE | 2024-05-15 08:09 | Discharge Summary ---
Date of Service May 15, 2024 Admission HPI Per Admitting Provider Patient is a 18-year-old male that presents after taking over 100 pills of benzodiazepines. patient was lethargic although responds to verbal stimuli on exam. Patient's mother and father at bedside. He and his family are from the [place] area, he is a [employer] student. His mother stated that she Him to visit on Monday because he started clonazepam and will seemed overmedicated on the phone. She spoke with his psychiatrist who made some medication adjustments and he seemed to be doing better today 05/08. She decided to leave to head back home since he was doing better, he then texted her and said that one of his classes added another test to the semester and he was stressed about it. About an hour later his father received a phone call that was alarming, the patient just kept repeating "I love you dad ". The family and the patient's roommate then found out that he took over 100 benzodiazepines, as per the patient's roommate. They then called 911 and his parents came into town. The patient has never had a suicidal attempt like this in the past. He does have a psychiatrist and therapist in [place] who are both aware of current condition. The patient's mother stated that he had some recent medication changes, in the past few days he went down from 5 medications to 3 medications with an addition of melatonin at night. The following list was provided although not all doses are confirmed: guanfacine, Seroquel, perphenazine, nortriptyline, clonazepam, lorazepam. As per PDMP the patient was prescribed lorazepam 0.5 Mg x 60 pills on 04/29 and clonazepam 1 mg x 90 pills on 05/03. His family was updated at bedside. Spoke with poison control, they were updated regarding patient's status. They recommended telemetry monitoring along with the repeat EKG in 6 to 8 hours. If any changes occur and the patient's lab work or mental status, please call them with an update and for recommendations. Admission Exam Per Admitting Provider The patient is lethargic, responds to verbal stimuli, in no acute distress. Non- toxic appearing. HEENT- mucous membranes moist. Hearing grossly intact. Heart-normal S1 and S2. No murmurs, rubs or gallops. Lungs-clear bilaterally, no respiratory distress, no accessory muscle use. Abdomen-normal bowel sounds and soft. No ascites noted. Extremities- no clubbing, cyanosis, or edema. Principal Diagnosis Multiple drug overdose, intentional Discharge Exam General:Alert and oriented, no acute distress, fatigued appearing this morning HEENT: Normocephalic, moist oral mucosa, Cardio: Regular rate and rhythm, no murmur, Resp:Lungs clear to auscultation b/l, no wheezes or rhonchi, GI: Soft and nontender, active bowel sounds Skin: Warm, pink, dry, Discharge Data Allergies Allergy/AdvReac Type Severity Reaction Status Date / Time No Known Allergies Allergy Unverified 05/12/24 16:17 Consultations 05/08/24 15:44 ED Decision to Admit Stat 05/08/24 17:48 Consult Psychiatry Routine 05/12/24 13:28 Consult Urology Routine Hospital Course (1) Acute urinary retention: (2) Benzodiazepine (tranquilizer) overdose: (3) Suicide attempt: Plan Pt is a 18 y/o male with a past medical history of panic disorder, general anxiety disorder, MDD who presents to the hospital for an intentional benzodiazepine overdose. Intentional drug overdose, multiple drugs Suicide attempt - patient's roommate reported that patient took over 100 pills of benzodiazepines, pt states he took probably 6 different drugs in large amounts - PDMP shows recent prescription of clonazepam 1 mg x 90 days pills 05/03 and lorazepam 0.5 Mg x 60 pills 04/29 - EKGs have been stable, pt has been lethargic/sedated but otherwise with stable vitals throughout hospital stay - psych consulted and pt is voluntary to inpatient psych admission, but if he should try to leave he will be 302 - pt clearly notes that overdose was a definite suicide attempt Acute urinary retention, resolved - since admission has had several episodes of remarkable urinary retention requiring several straight caths, now with seymour since 05/11 - most likely related directly to multidrug overdose, suspect anticholinergic toxicity - urology consulted; reattempted void trial yesterday, pt was able to void on own Total Time Total Time Spent Total Time Spent (In Minutes): <30 Discharge Plan Discharge Items Patient Disposition: Transfer Behavioral Health Fac Reason For Visit: BENZO OD Discharge Diagnosis: Depression Activity: Resume your previous activity Non-emergency contact: Primary Care Provider and Psychiatrist Call non-emergency contact if: you have any medication questions and your symptoms worsen Follow-up/Referrals: Luis Mariscal MD [Primary Care Provider] - Diet: Regular Addtl Attending Provider Instructions: Ongoing medication management per behavioral health team Pending Studies at Discharge: No Stand-Alone Forms: My [facility] Medications and DC Order Prescriptions: Discontinued nortriptyline 25 mg Capsule 25 mg PO DAILY perphenazine 6 mg PO TID Discharge Orders: Discharge Order (Routine); Ordered 05/14/24 Ordered By: Donaldo Norton Admission Data Admit Date/Time: 05/08/24 16:03 Attending Provider: Donaldo Norotn Admit Provider: Joaquin Hazel Primary Care Provider: Luis Mariscal Other Providers: Joaquin Hazel; Arleth Bhandari; Randal Castellano; Patricia Paige; Kylie Renae; Martin Dailey; Miasha Bhatia; Rojelio Bob Supervising Physician Co-Signing Physician Notes I personally examined the patient and verified all daniels points of history and exam, discussed case, and agree with decision making with Dr Harris feeling ok had a little trouble voiding overnight but no need for cath was able to void appropriately after a little while vitals noted nad heent nc at mmm breathing unlabored no accessory muscles good effort urinary retention - resolving - did struggle a little overnight but no need for intervention - ?residual anticholinergic effect from OD vs sympathetic output from stress in the situation - either way safe for U no ongoing need for cath (obviously call our team if any problems recur or new problems arise - but doubtful to happen) depression/polysubstance OD - per BHU otherwise as above Resident Activity Tracking Resident Involvement: Resident Care Provided Care Provided: Adult Hospital Medicine
--- NOTE | 2024-05-15 08:59 | Billing Data ---
Date of Service May 15, 2024 Coding Level of Care Code 54902 IN/OBS DISCH 30 MIN/LESS
--- NOTE | 2024-05-15 09:00 | Billing Data ---
Date of Service May 14, 2024 Coding Level of Care Code 00700 SUB INP/OBS CARE MIN Comment disregard 238 from 05/14
[2024-05-15 12:26] VITALS: BP 142/83; PULSE 98; RESP 21; O2SAT 96
--- NOTE | 2024-05-15 12:26 | History & Physical ---
Date of Service May 15, 2024 Impression / Recommendations Mckay Bryan is a 18 yo man and [employer] student admitted medically following an intentional overdose suicide attempt. Diagnostically consistent with MDD in the context of recent stressors including academic pressure. Acute risk of self-harm remains elevated and high given suicide attempt requiring medical admission, history of possible prior attempt, impulsivity, limited insight. Given elevated risk of harm to self they meet criteria for inpatient psychiatric care for diagnostic clarification, safety/stabilization, development of additional coping skills, medication management and disposition/safety planning once medically stable. If they do not agree to voluntary treatment at that time they will meet criteria for 302 status based on severity of suicide attempt and ongoing modifiable risk factors. (1) Intentional benzodiazepine overdose: (2) Suicide attempt: Plan -Continue 1-on-1 for risk of harm to self -Do not discharge or allow to leave AMA -Hold psych medications for now -Once medically cleared plan for psychiatric hospitalization (either 201 or 302 status). Psychiatric History Identifying Data RAS DAVIS is a 18-year-old M who currently lives in [] [alone] with [], has a history of [], and was admitted on 05/08/24 16:03 on a [201 voluntary] [302 involuntary] commitment for []. Chief Complaint "[]". Allergies Allergy/AdvReac Type Severity Reaction Status Date / Time No Known Allergies Allergy Unverified 05/12/24 16:17 Home Medications Medication Instructions Recorded Confirmed Type nortriptyline 25 mg capsule 25 mg PO DAILY 05/08/24 05/08/24 History perphenazine 6 mg PO TID 05/08/24 05/08/24 History Smoking Use Smoking Status: Current every day smoker Personal History Beliefs That Will Affect Care: None Patient History Social History Smoking Status: Current every day smoker Tobacco Type: Cigarettes Hx Alcohol Use: Yes Alcohol type: hard liquor Hx Substance Use: No Preferred Language: Mohawk Communication Ability: Impaired Public Policy Professor Required: No Beliefs That Will Affect Care: None Current Living Situation: Family Other Information That Helps Us Care for You: No Feels Safe at Home: Yes Safety Concerns: Feels Safe At This Time Assistive Devices: None Physical Exam Vital Signs (Past 24 Hours): Last Vital Signs Temp 36.6 C 05/15/24 09:30 Pulse 67 05/15/24 09:30 Resp 19 05/15/24 09:30 BP 108/63 05/15/24 09:30 Pulse Ox 94 05/15/24 09:30 O2 Del Method Room Air 05/15/24 07:58 Results & Data ([facility]) Laboratory Results Laboratory Results - last 24 hr 05/14/24 05/15/24 Unknown 05:56 Sodium 142 Potassium 4.2 Chloride 108 H Carbon Dioxide 26 Anion Gap 8 BUN 13 Creatinine 0.94 Est Cr Clr Drug Dosing 134.3 eGFR 119.76 BUN/Creatinine Ratio 13.8 Glucose 86 Calcium 9.8 SARS-CoV-2, RNA, NAAT NEGATIVE Current Inpatient Medications Current Inpatient Medications: Current Inpatient Medications Acetaminophen (Acetaminophen 325 Mg Tab) 650 mg PO Q4H PRN PRN Reason: Pain Stop: 06/11/24 16:05 Last Admin: 05/14/24 20:33 Dose: 650 mg Ondansetron HCl (Ondansetron Inj 2 Mg/Ml 2 Ml Vial) 4 mg IV Q6H PRN PRN Reason: Nausea And Vomiting Stop: 06/07/24 17:47 Last Admin: 05/13/24 09:16 Dose: 4 mg Polyethylene Glycol (Polyethylene (Miralax) 17 Gm Pack) 17 gm PO BID SHIRLEY Stop: 06/12/24 20:59 Last Admin: 05/15/24 08:54 Dose: 17 gm Sodium Chloride (Sodium Chloride 0.65% Na Soln 45 Ml ([place])) 2 sprays NA Q3H PRN PRN Reason: Congestion Stop: 06/08/24 14:33
== END 2024-05-15 15:11 | DRG 918 ==
LOC: SUATTDRO → ED 12:43 → 2E 16:03 → SUATTDRO 16:03 → 2E 17:22

== ENCOUNTER 2024-05-15 12:36 | Inpatient (IN) ==
[2024-05-15] MEDS ORDERED: MAGNESIUM HYDROXIDE SUSP 30 ML UDC PO PRN (13:03)
[2024-05-15] MEDS ORDERED: ALUMINUM/MAGNESIUM SUSP 30 ML UDC PO PRN (13:03)
[2024-05-15] MEDS ORDERED: ACETAMINOPHEN 325 MG TAB PO PRN (13:03)
[2024-05-15] MEDS ORDERED: SODIUM CHLORIDE 0.65% NA SOLN 45 ML (OCEAN) PRN (13:03)
[2024-05-15] MEDS ORDERED: hydrOXYzine HCl 25 MG TAB PO PRN ×2 (13:03)
[2024-05-15] MEDS ORDERED: BISMUTH SUBSALICYLATE 262 MG CHEW PO PRN (13:03)
[2024-05-15 17:17] VITALS: RESP 16
[2024-05-15] MEDS: Patient's HEIGHT &/or WEIGHT Needed STA (18:13)
[2024-05-15] MEDS: POLYETHYLENE (MIRALAX) 17 GM PACK PO SCH (20:41)
[2024-05-16] MEDS: PSYLLIUM or GUAR GUM FIBER 4GM PACKET PO SCH (09:03)
[2024-05-16] MEDS: ARIPiprazole 5 MG TAB PO SCH (12:06)
--- NOTE | 2024-05-16 14:46 | History & Physical ---
Date of Service May 16, 2024 Impression / Recommendations Mckay DAVIS is a [employer] Sophomore 18-year-old M, has a history of social anxiety, panic attacks, depression, suicide attempt, and was admitted on 05/15/24 15:11 on a 201 voluntary commitment for suicide attempt via ingestion of 100+ Clonazepam pills. Initially stabilized on medical floor and transferred to [facility]. Presentation consistent with suicide attempt via Benzodiazepine ingestion, social anxiety disorder, panic attacks, MDD. Recent suicide attempt occurred in the context of academic stressors, chronic SI, and intoxication with prescribed benzodiazepines. Patient has had multiple medication trials with limited benefit. Presents poor self esteem, anxiety about social competence, and related panic attacks in social settings. Pt is at high risk of suicide given recurrent attempts, continued planning, poor insight into condition, and poor judgement. Labs reviewed: TSH, CBC, BMP, LFTs within expected limits. EKG unremarkable. Plan to start Abilify, medication s/e and adverse effects discussed with patient and agreeable. May benefit from [place] initiation for suicidality and Prazosin for nightmares. Recommend IOP and safety planning. MNPR due to social anxiety with panic symptoms Overall, I spent a total of 70 minutes with this case including review of chart records, nursing report, review of lab work, direct evaluation of the patient at bedside, counseling the patient, multidisciplinary team meeting, orders, and documentation in the electronic health record. (1) Suicide attempt: (2) Benzodiazepine (tranquilizer) overdose: (3) Social anxiety disorder: (4) Panic attacks: (5) MDD (major depressive disorder), recurrent episode, severe: (6) Cluster B personality disorder: (7) Asthma: Plan 05/16/2024: The patient was admitted to the [facility] ([facility] mental health unit) on q15 min checks (behavioral with suicide precautions) for safety. The patient will participate in group, recreational, and milieu therapies and will be offered additional individual and family sessions as clinically appropriate. -Start Aripiprazole 5mg daily Inventory Assets Strengths: medication adherent, intelligent Needs: improved self esteem, dec risk taking behaviors Suicide Risk Level Suicide Risk Level: High-Moderate (q15 min suicide checks) Risk Factors Assessment Male: Yes : Yes Do You Have Access To A Gun?: No Health Problems: Yes (asthma) Mental Health Diagnoses: Yes Substance Use Disorders: No Previous Attempt: Yes Family History of Suicide: No Previous Psychiatric Hospitalization: No Hopelessness: Yes Protective Factors Assessment Uatsdin Beliefs: No : No Responsible for Young Children: No Employed: No Stable Relationships: Yes Supportive Family: Yes Good Rapport with Provider: Yes Absence of Any Risk Factors Above: No Psychiatric History Identifying Data RAS DAVIS is a [employer] [facility] Sophomore 18-year-old M, has a history of social anxiety, panic attacks, depression, suicide attempt, and was admitted on 05/15/24 15:11 on a 201 voluntary commitment for suicide attempt via ingestion of 100+ Clonazepam pills. Initially stabilized on medical floor and transferred to [facility]. Chief Complaint "Took a shit ton of meds" History of Present Illness The patient reports having a "rough week" where he was worried about his academics because of a "string of bad tests" and forgetting that he had a test next week he was not prepared for. His mom came in that week and he noted feeling very low. Prior to admission he took whiskey and then the pills and then called for an ambulance after. He reports past suicide attempt 2 years ago where he attempted to hang himself and got close however "could not knock the chair". He was intoxicated at this time as well. Reports depression and anxiety since 2019 when COVID for started and his parents . Since then has complained of low mood, poor self-esteem, difficulties with sleep. Endorses fair appetite and fair concentration. Complains of an escalation of night terrors where he wakes up emotionally distraught with increased heart rate and shortness of breath. Reports difficulty in public situations where he feels constantly judged. Complains of panic attacks in social settings with shortness of breath, mental doom, and feels paralyzed. Reports panic symptoms and social anxiety impacts his relationships and social functioning. He often ruminates about past embarrassments, social failures, academic performance. He puts himself in "painful situations" and has considered self-harm however does not have the guts to do it. He questions his purpose and identity. Social problems have gotten worse since going to college because of the new environment. Previous home medications of Clonazepam 1mg TID, Lorazepam 0.5mg BID PRN. Recent nortriptyline 25 mg, perphenazine 6 mg 3 times daily, guanfacine 1 mg at bedtime, Seroquel at bedtime all discontinued prior to admission and placed on benzodiazepines only. Patient reports past trials of multiple SSRIs (worsening hand tremor), SNRI (worsening motor tics), beta-blockers contraindicated due to asthma. Has not tried lithium. [place] sedated on Klonopin. Past medications include: Fluoxetine (worsening whole body tics), sertraline (worsening whole body tics), bupropion, duloxetine (worsening tics), mirtazapine (worsening tics), nortriptyline (25 mg low dose, may nightmares worse), quetiapine, lamotrigine, buspirone, hydroxyzine, lorazepam, clonazepam, melatonin, guanfacine (longstanding medication and effective for tics was recently discontinued). He grew up near [place]. Has 2 sisters who are supportive. Endorses a stable childhood with no neglect. He denies physical, emotional, sexual abuse. He reports having a high ego in middle school and often bullied others; as he grew up he judges himself for this became more self-conscious. Reports bullying others for acceptance. Suspected depression in father however untreated. He denies drug use currently, social drinker when drink a week. Historical marijuana and one time hallucinogen use. Parents in 2019. 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 He denies having any legal problems. Is not spiritual. No past intensive outpatient program. Has outpatient psychiatry and therapy in [place]. Past Psychiatric History Current Psychiatric Diagnosis: Anxiety Disorder Do You Have Access To A Gun?: No History of Previous Suicide Attempt: Yes Allergies Allergy/AdvReac Type Severity Reaction Status Date / Time No Known Allergies Allergy Unverified 05/12/24 16:17 Family History Family History of: None Family Mental Health History Comment: denies history, possibly father undiagnosed depression Alcohol History Hx of Alcohol Use Over the Past 12 Months: Yes (socially, once/week) AUDIT Total Score: 6 Smoking Use Have You Smoked or Used Tobacco Products in the Last 30 Days: Yes tobacco type: cigarettes Smoking Status: Light tobacco smoker Smoking packs per day: 0.25 Substance History Hx of Prescription Med Misuse Over the Past 12 Months: No Hx of Over the Counter Med Misuse Over the Past 12 Months: No Hx of Inhalent Misuse Over the Past 12 Months: No Hx of Organic Substance Use Over the Past 12 Months: No Hx of Illegal Substances/Street Drug Use Over Past 12 Months: No Problems as a Result of Past Substance Use: None Identified Personal History Living Arrangements: Apartment Highest Grade Completed: High School Graduate Highest Grade Completed Comment: [employer] at [employer].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 Marital Status: Single Number Of Children: 0 Beliefs That Will Affect Care: None Patient History Social History Smoking Status: Light tobacco smoker Tobacco Type: Cigarettes Hx Alcohol Use: Yes Alcohol type: hard liquor Hx Substance Use: No Preferred Language: Mongolian Communication Ability: Effective Aircraft Engine Mechanic Required: No Beliefs That Will Affect Care: None Current Living Situation: Family Feels Safe at Home: Yes Gender Identity: Male Assistive Devices: None Physical Exam Mental Examination: Appearance: Well Groomed Eye Contact: Maintains Eye Contact Motor Behavior: Unremarkable Speech: Normal Mood: Depressed and Anxious Affect: Anxious and Constricted Thought Process: Intact Thought Content: Linear and Racing Hallucinations: None Insight: Poor Judgement: Poor Vital Signs (Past 24 Hours): Last Vital Signs Temp 36.7 C 05/16/24 06:50 Pulse 81 05/16/24 06:51 Resp 16 05/16/24 06:50 BP 118/79 05/16/24 06:51 Pulse Ox 98 05/15/24 16:19 O2 Del Method Room Air 05/15/24 16:19 Exam Statement: A physical exam was performed in the ED for the purposes of medical clearance. I accept that physical as correct and adequate for the purposes of the inpatient physical exam. Results & Data ([facility]) Current Inpatient Medications Current Inpatient Medications: Current Inpatient Medications Acetaminophen (Acetaminophen 325 Mg Tab) 650 mg PO Q4H PRN PRN Reason: Headache or Minor Fever Stop: 06/14/24 13:02 Al Hydrox/Mg Hydrox/Simethicone (Aluminum/Magnesium Susp 30 Ml Udc) 30 ml PO Q4H PRN PRN Reason: GI Upset Stop: 06/14/24 13:02 Aripiprazole (Aripiprazole 5 Mg Tab) 5 mg PO QAM SHIRLEY Stop: 06/15/24 10:59 Last Admin: 05/16/24 12:06 Dose: 5 mg Bismuth Subsalicylate (Bismuth Subsalicylate 262 Mg Chew) 2 tab PO Q30M PRN PRN Reason: Loose Stool/Diarrhea Stop: 06/14/24 13:02 Lorazepam (Lorazepam 1 Mg Tab) 1 mg PO Q6 PRN PRN Reason: Anxiety Stop: 06/14/24 15:44 Magnesium Hydroxide (Magnesium Hydroxide Susp 30 Ml Udc) 30 ml PO DAILY PRN PRN Reason: Constipation Stop: 06/14/24 13:02 Polyethylene Glycol (Polyethylene (Miralax) 17 Gm Pack) 17 gm PO BID SHIRLEY Stop: 06/14/24 20:59 Last Admin: 05/16/24 09:03 Dose: 17 gm Psyllium Hydrophilic Mucilloid (Psyllium Or Guar Gum Fiber 4gm Packet) 4 gm PO QAM SHIRLEY Stop: 06/15/24 08:59 Last Admin: 05/16/24 09:03 Dose: 4 gm Sodium Chloride (Sodium Chloride 0.65% Na Soln 45 Ml ([place])) 1 - 2 sprays NA PRN PRN PRN Reason: Nasal Dryness/Congestion Stop: 06/14/24 13:02
[2024-05-16] MEDS: LORazepam 1 MG TAB PO PRN (21:18)
--- NOTE | 2024-05-17 13:56 | Psychiatric Progress Note ---
Date of Service May 17, 2024 Impression / Recommendations Mckay DAVIS is a [employer] Sophomore 18-year-old M, has a history of social anxiety, panic attacks, depression, suicide attempt, and was admitted on 05/15/24 15:11 on a 201 voluntary commitment for suicide attempt via ingestion of 100+ Clonazepam pills. Initially stabilized on medical floor and transferred to [facility]. Presentation consistent with suicide attempt via Benzodiazepine ingestion, social anxiety disorder, panic attacks, MDD. Recent suicide attempt occurred in the context of academic stressors, chronic SI, and intoxication with prescribed benzodiazepines. Patient has had multiple medication trials with limited benefit. Presents poor self esteem, anxiety about social competence, and related panic attacks in social settings. Pt is at high risk of suicide given recurrent attempts, continued planning, poor insight into condition, and poor judgement. A: Patient presents with a brighter affect and is engaging in good self care. Continues to have sleep impairments. Concern for uncontrolled anxious ruminations, identity formation, and poor coping skills contributing to thoughts of suicide. Patient was counseled about the importance of CBT and recommended intensive outpatient program. Plan to start lithium at a low dose for suicidality; medication side effects and adverse effects discussed with patient and agreeable. He is tolerating Abilify well and we will plan to continue. We will draw baseline metabolic labs and vitamin labs. MNPR due to social anxiety with panic symptoms Overall, I spent a total of 35 minutes with this case including review of chart records, nursing report, review of lab work, direct evaluation of the patient at bedside, counseling the patient, multidisciplinary team meeting, orders, and documentation in the electronic health record. (1) Suicide attempt: (2) Benzodiazepine (tranquilizer) overdose: (3) Social anxiety disorder: (4) Panic attacks: (5) MDD (major depressive disorder), recurrent episode, severe: (6) Cluster B personality disorder: (7) Asthma: Plan 05/17/2024: Start lithium 150 mg daily. Labs for fasting lipid profile, hemoglobin A1c, vitamin D, B12. 05/16/2024: The patient was admitted to the [facility] ([facility] mental [facility]) on q15 min checks (behavioral with suicide precautions) for safety. The patient will participate in group, recreational, and milieu therapies and will be offered additional individual and family sessions as clinically appropriate. -Start Aripiprazole 5mg daily Inventory Assets Strengths: medication adherent, intelligent Needs: improved self esteem, dec risk taking behaviors Suicide Risk Level Suicide Risk Level: High-Moderate (q15 min suicide checks) Risk Factors Assessment Male: Yes : Yes Do You Have Access To A Gun?: No Health Problems: Yes (asthma) Mental Health Diagnoses: Yes Substance Use Disorders: No Previous Attempt: Yes Family History of Suicide: No Previous Psychiatric Hospitalization: No Hopelessness: Yes Protective Factors Assessment Scientology Beliefs: No : No Responsible for Young Children: No Employed: No Stable Relationships: Yes Supportive Family: Yes Good Rapport with Provider: Yes Absence of Any Risk Factors Above: No Interval History Identifying Information RAS DAVIS is a [employer] Sophomore 18-year-old M, has a history of social anxiety, panic attacks, depression, suicide attempt, and was admitted on 05/15/24 15:11 on a 201 voluntary commitment for suicide attempt via ingestion of 100+ Clonazepam pills. Initially stabilized on medical floor and transferred to [facility]. Chief Complaint "Poor coping with stress" Review of Systems Sleep Information Total Hours of Sleep: 7.25 Meal Information Percent Meal Consumed - Breakfast: 100 Percent Meal Consumed - Lunch: 100 Percent Meal Consumed - Dinner: 100 Subjective Subjective Patient was seen & assessed and interval progress reviewed with treatment team nursing and social work Nursing reports patient has been isolated with limited interaction with his peers. Prior to interview he is seen in the group room talking to one individual peer and listening to his favorite song. He is smiling and appears c heerful. He reports disrupted sleep with 8-10 awakenings however could go back to sleep. Engaging in self-care with daily hygiene practices. He reports a history of "poor coping with stress" and it is hard for him to escape this anxiety. Reports last week he was "marching to ". When discussing suicide he reports he hates pain and potential disability that can occur after a suicide attempt and that is what is holding him from committing suicide. He denies current suicidal ideation. He reports a loss of perspective when he is stressed out and that he sees things as "black and white thinking". Reports current conflict of switching his major and is considering doing academic psychology. He reports limited engagement in counseling and uses it more of a "recap" then to work on his thoughts. Has been at the same therapist for 3 years and sees him as his best friend. He denies having night terrors last night. Physical Exam Mental Examination Appearance: Well Groomed Eye Contact: Maintains Eye Contact Motor Behavior: Unremarkable Speech: Normal Mood: Euthymic and Calm Affect: Appropriate and Congruent Thought Process: Intact Thought Content: Linear and Racing Hallucinations: None Insight: Poor Judgement: Poor Vital Signs (Past 24 Hours) Last Vital Signs Temp 36.9 C 05/17/24 06:40 Pulse 84 05/17/24 06:41 Resp 16 05/17/24 06:40 BP 130/89 05/17/24 06:41 Pulse Ox 98 05/15/24 16:19 O2 Del Method Room Air 05/15/24 16:19 Results & Data ([facility]) Current Inpatient Medications Current Inpatient Medications: Current Inpatient Medications Acetaminophen (Acetaminophen 325 Mg Tab) 650 mg PO Q4H PRN PRN Reason: Headache or Minor Fever Stop: 06/14/24 13:02 Al Hydrox/Mg Hydrox/Simethicone (Aluminum/Magnesium Susp 30 Ml Udc) 30 ml PO Q4H PRN PRN Reason: GI Upset Stop: 06/14/24 13:02 Aripiprazole (Aripiprazole 5 Mg Tab) 5 mg PO QAM SHIRLEY Stop: 06/15/24 10:59 Last Admin: 05/17/24 10:11 Dose: 5 mg Bismuth Subsalicylate (Bismuth Subsalicylate 262 Mg Chew) 2 tab PO Q30M PRN PRN Reason: Loose Stool/Diarrhea Stop: 06/14/24 13:02 [place] Carbonate ([place] Carbonate 300 Mg Tab) 150 mg PO HS SHIRLEY Stop: 06/16/24 21:59 Lorazepam (Lorazepam 1 Mg Tab) 1 mg PO Q6 PRN PRN Reason: Anxiety Stop: 06/14/24 15:44 Last Admin: 05/16/24 21:18 Dose: 1 mg Magnesium Hydroxide (Magnesium Hydroxide Susp 30 Ml Udc) 30 ml PO DAILY PRN PRN Reason: Constipation Stop: 06/14/24 13:02 Psyllium Hydrophilic Mucilloid (Psyllium Or Guar Gum Fiber 4gm Packet) 4 gm PO QAM SHIRLEY Stop: 06/15/24 08:59 Last Admin: 05/17/24 10:12 Dose: 4 gm Sodium Chloride (Sodium Chloride 0.65% Na Soln 45 Ml ([place])) 1 - 2 sprays NA PRN PRN PRN Reason: Nasal Dryness/Congestion Stop: 06/14/24 13:02 Mental Health & Subst Abuse Tx Psychiatrist Name of Psychiatrist: Dr. Marie Psychiatrist's Date Of Appointment With Psychiatric Provider: 05/27/24 Time of Appointment with Psychiatrist: 11:30AM Therapist Name of Therapist: Samuel Harding Fixed Route Bus Operator Name of Fixed Route Bus Operator: Denies Post Discharge Appointments Primary Care Physician Name Of Family Doctor/PCP: ASHLEIGH
[2024-05-17] MEDS: LITHIUM CARBONATE 300 MG TAB PO SCH (21:03)
[2024-05-18 08:06] LABS: Chol HDL Ratio 6.3 (0-5)
[2024-05-18 08:50] LABS: Estimated Average Glucose 97 mg/dl
--- NOTE | 2024-05-18 09:38 | Psychiatric Progress Note ---
Date of Service May 18, 2024 Impression / Recommendations Mckay DAVIS is a [facility] Sophomore 18-year-old M, has a history of social anxiety, panic attacks, depression, suicide attempt, and was admitted on 05/15/24 15:11 on a 201 voluntary commitment for suicide attempt via ingestion of 100+ Clonazepam pills. Initially stabilized on medical floor and transferred to [facility]. Presentation consistent with suicide attempt via Benzodiazepine ingestion, social anxiety disorder, panic attacks, MDD. Recent suicide attempt occurred in the context of academic stressors, chronic SI, and intoxication with prescribed benzodiazepines. Patient has had multiple medication trials with limited benefit. Presents poor self esteem, anxiety about social competence, and related panic attacks in social settings. Pt is at high risk of suicide given recurrent attempts, continued planning, poor insight into condition, and poor judgement. A: Mood improving a bit, reports lessening of anxiety but seems to be minimizing severity of recent attempt. 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 Tolerating medications so far, he states a preference to keep doses as low as possible, likes current effects. Reviewed labwork-HbA1c, cholesterol stable, reviewed LDL high but reasonable to remain on Abilify, discussed recommendation to have monitored closely over time to ensure this doesn't worsen. Discussed recommendation for IOP to help with mood symptoms and anxiety, he will think about this. Discussed medication options for sleep, he consents to trazodone for sleep/depression. Reviewed side effects including but not limited to: sedation, increased appetite/weight gain, priapism. MNPR due to social anxiety with panic symptoms Overall, I spent a total of 45 minutes on this case including meeting with the patient, reviewing the chart, nursing report, multidisciplinary team meeting, orders, and documentation. (1) Suicide attempt: (2) Benzodiazepine (tranquilizer) overdose: (3) Social anxiety disorder: (4) Panic attacks: (5) MDD (major depressive disorder), recurrent episode, severe: (6) Cluster B personality disorder: (7) Asthma: Plan 05/18/2024: Start trazodone 50mg HS and decrease lorazepam to 0.5mg prn for anxiety 05/17/2024: Start lithium 150 mg daily. Labs for fasting lipid profile, hemoglobin A1c, vitamin D, B12. 05/16/2024: The patient was admitted to the [facility] ([facility] inpatient mental health unit) on q15 min checks (behavioral with suicide precautions) for safety. The patient will participate in group, recreational, and milieu therapies and will be offered additional individual and family sessions as clinically appropriate. -Start Aripiprazole 5mg daily Inventory Assets Strengths: medication adherent, intelligent Needs: improved self esteem, dec risk taking behaviors Suicide Risk Level Suicide Risk Level: High-Moderate (q15 min suicide checks) (s/p serious suicide attempt with some ambivalence but mood improving, denies current SI, feels safe in the hospital, feels able to ask for support) Risk Factors Assessment Male: Yes : Yes Do You Have Access To A Gun?: No Health Problems: Yes (asthma) Mental Health Diagnoses: Yes Substance Use Disorders: No Previous Attempt: Yes Family History of Suicide: No Previous Psychiatric Hospitalization: No Hopelessness: Yes Protective Factors Assessment Tenriism Beliefs: No : No Responsible for Young Children: No Employed: No Stable Relationships: Yes Supportive Family: Yes Good Rapport with Provider: Yes Absence of Any Risk Factors Above: No Interval History Identifying Information RAS DAVIS is a [facility] Sophomore 18-year-old M, has a history of social anxiety, panic attacks, depression, suicide attempt, and was admitted on 05/15/24 15:11 on a 201 voluntary commitment for suicide attempt via ingestion of 100+ Clonazepam pills. Initially stabilized on medical floor and transferred to [facility]. Chief Complaint "Because I can't do it, I'm too scared". Review of Systems Sleep Information Total Hours of Sleep: 6.30 Sleep Comments: GENET Ayala at aprrox. 2100 Meal Information Percent Meal Consumed - Breakfast: 90 Percent Meal Consumed - Lunch: 100 Percent Meal Consumed - Dinner: 100 Subjective Subjective Patient was seen & assessed and interval progress reviewed with treatment team nursing and social work. Still feels like there is no point to living but minimizing attempt and denying current SI. Doesn't interact much with peers. Today reports his mood is "good". Looking forward to seeing his mom. Discussed IOP, he's willing to consider this, wants to discuss more with his mother. Reviewed suicide attempt, he feels he won't attempt again because "i tried that and had my chance and for whatever reason I reached out for help, otherwise all I had to do was wait 20 minutes". Feels he wouldn't try via others means because doesn't want to buy a gun and feels he would not want to try anything that would be painful. Tolerating medications. Had trouble falling asleep and staying asleep last night. Reviewed medication options to help with this. Discussed recommendation to eventually taper off lorazepam. Physical Exam Psychiatric Orientation: alert and oriented x 3 Apperance: appropriately dressed and appropriately groomed Eye Contact: + fair eye contact Motor Behavior: no abnormal motor movements Speech: normal rate/rhythm/volume of speech Affect: + anxious affect and + constricted affect Mood: + depressed mood and + anxious mood Thought Process: + concrete thought process Thought Content: reality based without delusions Suicidal Thoughts: denies suicidal thoughts (but s/p serious attempt and some ambivalence ) Homicidal Thoughts: denies homicidal thoughts Hallucinations: no auditory hallucinations and no visual hallucinations Insight: + limited insight Judgment: + limited judgement Vital Signs (Past 24 Hours) Last Vital Signs Temp 36.7 C 05/18/24 06:52 Pulse 66 05/18/24 06:52 Resp 16 05/18/24 06:52 BP 123/85 05/18/24 06:53 Pulse Ox 96 05/18/24 06:52 O2 Del Method Room Air 05/18/24 06:52 Results & Data ([facility]) Laboratory Results Laboratory Results - last 24 hr 05/18/24 07:06 Estimat Average Glucose 97 Hemoglobin A1c 5.0 Triglycerides 114 Cholesterol 196 LDL Cholesterol, Calc 142 VLDL Cholesterol, Calc 23 HDL Cholesterol 31 Cholesterol/HDL Ratio 6.3 H Vitamin B12 563 25-OH Vitamin D Total 28.7 Current Inpatient Medications Current Inpatient Medications: Current Inpatient Medications Acetaminophen (Acetaminophen 325 Mg Tab) 650 mg PO Q4H PRN PRN Reason: Headache or Minor Fever Stop: 06/14/24 13:02 Al Hydrox/Mg Hydrox/Simethicone (Aluminum/Magnesium Susp 30 Ml Udc) 30 ml PO Q4H PRN PRN Reason: GI Upset Stop: 06/14/24 13:02 Aripiprazole (Aripiprazole 5 Mg Tab) 5 mg PO QAM SHIRLEY Stop: 06/15/24 10:59 Last Admin: 05/18/24 08:57 Dose: 5 mg Bismuth Subsalicylate (Bismuth Subsalicylate 262 Mg Chew) 2 tab PO Q30M PRN PRN Reason: Loose Stool/Diarrhea Stop: 06/14/24 13:02 [place] Carbonate ([place] Carbonate 300 Mg Tab) 150 mg PO HS SHIRLEY Stop: 06/16/24 21:59 Last Admin: 05/17/24 21:03 Dose: 150 mg Lorazepam (Lorazepam 1 Mg Tab) 1 mg PO Q6 PRN PRN Reason: Anxiety Stop: 06/14/24 15:44 Last Admin: 05/17/24 21:10 Dose: 1 mg Magnesium Hydroxide (Magnesium Hydroxide Susp 30 Ml Udc) 30 ml PO DAILY PRN PRN Reason: Constipation Stop: 06/14/24 13:02 Psyllium Hydrophilic Mucilloid (Psyllium Or Guar Gum Fiber 4gm Packet) 4 gm PO QAM SHIRLEY Stop: 06/15/24 08:59 Last Admin: 05/18/24 09:00 Dose: Not Given Sodium Chloride (Sodium Chloride 0.65% Na Soln 45 Ml ([place])) 1 - 2 sprays NA PRN PRN PRN Reason: Nasal Dryness/Congestion Stop: 06/14/24 13:02 Mental Health & Subst Abuse Tx Psychiatrist Name of Psychiatrist: Dr. Marie Psychiatrist's Date Of Appointment With Psychiatric Provider: 05/27/24 Time of Appointment with Psychiatrist: 11:30AM Therapist Name of Therapist: Samuel Harding ([address] [place] [id number]) Therapist's Date of Therapist Appointment: 05/22/24 Time of Therapist Appointment: 9:30AM Therapy Appointment Comment: Virtual or in person appt available Hvac R Tech Name of Hvac R Tech: Denies Post Discharge Appointments Primary Care Physician Name Of Family Doctor/PCP: Karri
[2024-05-18] MEDS ORDERED: LORazepam 0.5 MG TAB PO PRN (12:26)
[2024-05-18] MEDS: traZODone HCL 50 MG TAB PO SCH (21:00)
--- NOTE | 2024-05-19 09:13 | Psychiatric Progress Note ---
Date of Service May 19, 2024 Impression / Recommendations Mckay DAVIS is a [employer] Sophomore 18-year-old M, has a history of social anxiety, panic attacks, depression, suicide attempt, and was admitted on 05/15/24 15:11 on a 201 voluntary commitment for suicide attempt via ingestion of 100+ Clonazepam pills. Initially stabilized on medical floor and transferred to [facility]. Presentation consistent with suicide attempt via Benzodiazepine ingestion, social anxiety disorder, panic attacks, MDD. Recent suicide attempt occurred in the context of academic stressors, chronic SI, and intoxication with prescribed benzodiazepines. Patient has had multiple medication trials with limited benefit. Presents poor self esteem, anxiety about social competence, and related panic attacks in social settings. Pt is at high risk of suicide given recurrent attempts, continued planning, poor insight into condition, and poor judgement. A: Increased anxiety last evening and poor sleep overnight with lower dose of lorazepam so will increase back to previous dose. Ongoing anxiety but he feels the medication changes are beneficial. Plan for Aguila level on 05/21/2024- reviewed this is likely to be low as using low dose Aguila for depression augmentation and given history of SI. Will have SW make referral for IOP tomorrow. CAMS reassuring for improving mood and desire to live following serious suicide attempt. MNPR due to social anxiety with panic symptoms Overall, I spent a total of 40 minutes on this case including meeting with the patient, reviewing the chart, nursing report, multidisciplinary team meeting, orders, and documentation. (1) Suicide attempt: (2) Benzodiazepine (tranquilizer) overdose: (3) Social anxiety disorder: (4) Panic attacks: (5) MDD (major depressive disorder), recurrent episode, severe: (6) Cluster B personality disorder: (7) Asthma: Plan 05/19/2024: Increase lorazepam to 1mg prn. Li level for morning of 05/21/2024. 05/18/2024: Start trazodone 50mg HS and decrease lorazepam to 0.5mg prn for anxiety 05/17/2024: Start lithium 150 mg daily. Labs for fasting lipid profile, hemoglobin A1c, vitamin D, B12. 05/16/2024: The patient was admitted to the [facility] ([facility] mental health unit) on q15 min checks (behavioral with suicide precautions) for safety. The patient will participate in group, recreational, and milieu therapies and will be offered additional individual and family sessions as clinically appropriate. -Start Aripiprazole 5mg daily Inventory Assets Strengths: medication adherent, intelligent Needs: improved self esteem, dec risk taking behaviors Suicide Risk Level Suicide Risk Level: Moderate (q15 min suicide checks) (s/p serious suicide attempt but mood improving, denies current SI, increased desire to live, feels safe in the hospital, feels able to ask for support) Risk Factors Assessment Male: Yes : Yes Do You Have Access To A Gun?: No Health Problems: Yes (asthma) Mental Health Diagnoses: Yes Substance Use Disorders: No Previous Attempt: Yes Family History of Suicide: No Previous Psychiatric Hospitalization: No Hopelessness: Yes Protective Factors Assessment Jehovah'S Witness Beliefs: No : No Responsible for Young Children: No Employed: No Stable Relationships: Yes Supportive Family: Yes Good Rapport with Provider: Yes Absence of Any Risk Factors Above: No Interval History Identifying Information RAS DAVIS is a [employer] Sophomore 18-year-old M, has a history of social anxiety, panic attacks, depression, suicide attempt, and was admitted on 05/15/24 15:11 on a 201 voluntary commitment for suicide attempt via ingestion of 100+ Clonazepam pills. Initially stabilized on medical floor and transferred to [facility]. Chief Complaint "Ok". Review of Systems Sleep Information Total Hours of Sleep: 7 Sleep Comments: HS Trazadone Meal Information Percent Meal Consumed - Breakfast: 100 Percent Meal Consumed - Lunch: 50 Percent Meal Consumed - Dinner: 100 Subjective Subjective Patient was seen & assessed and interval progress reviewed with treatment team nursing and social work. Has been a little more social with peers, played a board game last evening. Rated his mood as a "4", "tired and bored". Had a good visit with his mother. Slept 7 hours however reports this was poor quality with >16 awakenings. He recalls having a panic attack last night before falling asleep which he hasn't had in a long time. He'd like to go back up on his dose of lorazepam. Reviewed IOP options, his mother knows of an in-person option near there home which he is agreeable to doing. Denies SI. Completed CAMS and rated his wish to live as high and wish to as low with more reasons to live than reasons to . Feels that improving his anxiety and self-esteem would be the biggest factor to lessen his SI and future risk. Having some nausea and decreased appetite but denies any other medication side effects. Wants to continue with Aguila and abilify. Physical Exam Psychiatric Orientation: alert and oriented x 3 Apperance: appropriately dressed and appropriately groomed Eye Contact: + fair eye contact Motor Behavior: no abnormal motor movements Speech: normal rate/rhythm/volume of speech Affect: + anxious affect and + constricted affect Mood: + depressed mood and + anxious mood Thought Process: + concrete thought process Thought Content: reality based without delusions Suicidal Thoughts: denies suicidal thoughts (but s/p serious attempt and some ambivalence ) Homicidal Thoughts: denies homicidal thoughts Hallucinations: no auditory hallucinations and no visual hallucinations Insight: + limited insight Judgment: + fair judgement Vital Signs (Past 24 Hours) Last Vital Signs Temp 36.4 C 05/19/24 06:52 Pulse 71 05/19/24 06:52 Resp 16 05/19/24 06:52 BP 132/83 05/19/24 06:53 Pulse Ox 96 05/19/24 06:52 O2 Del Method Room Air 05/19/24 06:52 Results & Data ([facility]) Current Inpatient Medications Current Inpatient Medications: Current Inpatient Medications Acetaminophen (Acetaminophen 325 Mg Tab) 650 mg PO Q4H PRN PRN Reason: Headache or Minor Fever Stop: 06/14/24 13:02 Al Hydrox/Mg Hydrox/Simethicone (Aluminum/Magnesium Susp 30 Ml Udc) 30 ml PO Q4 H PRN PRN Reason: GI Upset Stop: 06/14/24 13:02 Aripiprazole (Aripiprazole 5 Mg Tab) 5 mg PO QAM SHIRLEY Stop: 06/15/24 10:59 Last Admin: 05/19/24 08:44 Dose: 5 mg Bismuth Subsalicylate (Bismuth Subsalicylate 262 Mg Chew) 2 tab PO Q30M PRN PRN Reason: Loose Stool/Diarrhea Stop: 06/14/24 13:02 [place] Carbonate ([place] Carbonate 300 Mg Tab) 150 mg PO HS SHIRLEY Stop: 06/16/24 21:59 Last Admin: 05/18/24 21:00 Dose: 150 mg Lorazepam (Lorazepam 0.5 Mg Tab) 0.5 mg PO Q6 PRN PRN Reason: Anxiety Stop: 06/14/24 15:44 Magnesium Hydroxide (Magnesium Hydroxide Susp 30 Ml Udc) 30 ml PO DAILY PRN PRN Reason: Constipation Stop: 06/14/24 13:02 Psyllium Hydrophilic Mucilloid (Psyllium Or Guar Gum Fiber 4gm Packet) 4 gm PO QAM SHIRLEY Stop: 06/15/24 08:59 Last Admin: 05/19/24 08:46 Dose: Not Given Sodium Chloride (Sodium Chloride 0.65% Na Soln 45 Ml ([place])) 1 - 2 sprays NA PRN PRN PRN Reason: Nasal Dryness/Congestion Stop: 06/14/24 13:02 Trazodone HCl (Trazodone Hcl 50 Mg Tab) 50 mg PO HS SHIRLEY Stop: 06/17/24 21:59 Last Admin: 05/18/24 21:00 Dose: 50 mg Mental Health & Subst Abuse Tx Psychiatrist Name of Psychiatrist: Dr. Marie Psychiatrist's Date Of Appointment With Psychiatric Provider: 05/27/24 Time of Appointment with Psychiatrist: 11:30AM Therapist Name of Therapist: Samuel Harding ([address] [place] [address]) Therapist's Date of Therapist Appointment: 05/22/24 Time of Therapist Appointment: 9:30AM Therapy Appointment Comment: Virtual or in person appt available Corporate Sales Manager Name of Corporate Sales Manager: Denies Post Discharge Appointments Primary Care Physician Name Of Family Doctor/PCP: SANTIAGO
[2024-05-19] MEDS: LORazepam 1 MG TAB PO PRN (20:54)
--- NOTE | 2024-05-20 09:08 | Psychiatric Progress Note ---
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 Initially stabilized on medical floor and transferred to [facility]. Presentation consistent with suicide attempt via Benzodiazepine ingestion, social anxiety disorder, panic attacks, MDD. Recent suicide attempt occurred in the context of academic stressors, chronic SI, and intoxication with prescribed benzodiazepines. Patient has had multiple medication trials with limited benefit. Presents poor self esteem, anxiety about social competence, and related panic attacks in social settings. Pt is at high risk of suicide given recurrent attempts, continued planning, poor insight into condition, and poor judgement. A: Mood improving with brighter affect, engaging with peers, speaking expansively about topics of interest and future plans with humor and smiles. Tolerating medications and slept better last night with increased dose of lorazepam. Will shift [place] dosing to with dinner to see if this reduces AM GI symptoms. [place] level in the morning, anticipation will be subtherapeutic, want to ensure not in toxic range. In-person IOP has waitlist, he would like to be placed on waitlist, [facility] then [facility] within one week, he'll consider this after discussion with his parents. MNPR due to social anxiety with panic symptoms Overall, I spent a total of 35 minutes on this case including meeting with the patient, reviewing the chart, nursing report, multidisciplinary team meeting, orders, and documentation. (1) Suicide attempt: (2) Benzodiazepine (tranquilizer) overdose: (3) Social anxiety disorder: (4) Panic attacks: (5) MDD (major depressive disorder), recurrent episode, severe: (6) Cluster B personality disorder: (7) Asthma: Plan 05/20/2024: Switch [place] dosing to with dinner. Continue current medications and tx plan. 05/19/2024: Increase lorazepam to 1mg prn. Li level for morning of 05/21/2024. 05/18/2024: Start trazodone 50mg HS and decrease lorazepam to 0.5mg prn for anxiety 05/17/2024: Start lithium 150 mg daily. Labs for fasting lipid profile, hemoglobin A1c, vitamin D, B12. 05/16/2024: The patient was admitted to the [facility] ([facility] mental health unit) on q15 min checks (behavioral with suicide precautions) for safety. The patient will participate in group, recreational, and milieu therapies and w ill be offered additional individual and family sessions as clinically appropriate. -Start Aripiprazole 5mg daily Inventory Assets Strengths: medication adherent, intelligent Needs: improved self esteem, dec risk taking behaviors Suicide Risk Level Suicide Risk Level: Moderate (q15 min suicide checks) (s/p serious suicide attempt but mood improving, denies current SI, increased desire to live, feels safe in the hospital, feels able to ask for support) Risk Factors Assessment Male: Yes : Yes Do You Have Access To A Gun?: No Health Problems: Yes (asthma) Mental Health Diagnoses: Yes Substance Use Disorders: No Previous Attempt: Yes Family History of Suicide: No Previous Psychiatric Hospitalization: No Hopelessness: Yes Protective Factors Assessment Sikhism Beliefs: No : No Responsible for Young Children: No Employed: No Stable Relationships: Yes Supportive Family: Yes Good Rapport with Provider: Yes Absence of Any Risk Factors Above: No Interval History Identifying Information RAS DAVIS is a [employer] Soph[employer] 18-year-old M, has a history of social anxiety, panic attacks, depression, suicide attempt, and was admitted on 05/15/24 15:11 on a 201 voluntary commitment for suicide attempt via ingestion of 100+ Clonazepam pills. Initially stabilized on medical floor and transferred to [facility]. Chief Complaint "Good". Review of Systems Sleep Information Total Hours of Sleep: 6.30 Sleep Comments: HS Trazadone and PRN Ativan Meal Information Percent Meal Consumed - Breakfast: 100 Percent Meal Consumed - Lunch: 50 Percent Meal Consumed - Dinner: 100 Subjective Subjective Patient was seen & assessed and interval progress reviewed with treatment team nursing and social work. Attending groups, visited with his mom. Rated his mood as a "5" and neutral. Today reports his mood as "good". Observed to be smiling and laughing with peers while playing balloon volleyball. Slept better last night, estimates only 4 awakenings. Describes lessening of mental fogginess today, has been able to concentrate on reading a book his mom brought him. Discussed some of his interests including hockey and his plans to attend a future [employer] game and watch the [place]. Having some nausea in the morning which we discuss is likely from [place], he declines option for antiemetics but agrees to shift doing to dinnertime to see if this reduces GI symptoms. He feels symptoms are tolerable at this point and is willing to continue with [place]. Denies SI. Physical Exam Psychiatric Orientation: alert and oriented x 3 Apperance: appropriately dressed and appropriately groomed Eye Contact: good eye contact Motor Behavior: no abnormal motor movements Speech: normal rate/rhythm/volume of speech Affect: euthymic affect Mood: no depressed mood and no anxious mood Thought Process: goal directed thought process Thought Content: reality based without delusions Suicidal Thoughts: denies suicidal thoughts Homicidal Thoughts: denies homicidal thoughts Hallucinations: no auditory hallucinations and no visual hallucinations Insight: + fair insight Judgment: + fair judgement Vital Signs (Past 24 Hours) Last Vital Signs Temp 36.7 C 05/20/24 06:57 Pulse 75 05/20/24 06:57 Resp 16 05/20/24 06:57 BP 133/65 05/20/24 06:58 Pulse Ox 96 05/20/24 06:57 O2 Del Method Room Air 05/20/24 06:57 Results & Data ([facility]) Current Inpatient Medications Current Inpatient Medications: Current Inpatient Medications Acetaminophen (Acetaminophen 325 Mg Tab) 650 mg PO Q4H PRN PRN Reason: Headache or Minor Fever Stop: 06/14/24 13:02 Al Hydrox/Mg Hydrox/Simethicone (Aluminum/Magnesium Susp 30 Ml Udc) 30 ml PO Q4H PRN PRN Reason: GI Upset Stop: 06/14/24 13:02 Aripiprazole (Aripiprazole 5 Mg Tab) 5 mg PO QAM SHIRLEY Stop: 06/15/24 10:59 Last Admin: 05/20/24 08:38 Dose: 5 mg Bismuth Subsalicylate (Bismuth Subsalicylate 262 Mg Chew) 2 tab PO Q30M PRN PRN Reason: Loose Stool/Diarrhea Stop: 06/14/24 13:02 [place] Carbonate ([place] Carbonate 300 Mg Tab) 150 mg PO HS SHIRLEY Stop: 06/16/24 21:59 Last Admin: 05/19/24 20:51 Dose: 150 mg Lorazepam (Lorazepam 1 Mg Tab) 1 mg PO HS PRN PRN Reason: panic attack Stop: 06/17/24 12:25 Last Admin: 05/19/24 20:54 Dose: 1 mg Magnesium Hydroxide (Magnesium Hydroxide Susp 30 Ml Udc) 30 ml PO DAILY PRN PRN Reason: Constipation Stop: 06/14/24 13:02 Psyllium Hydrophilic Mucilloid (Psyllium Or Guar Gum Fiber 4gm Packet) 4 gm PO QAM SHIRLEY Stop: 06/15/24 08:59 Last Admin: 05/20/24 08:38 Dose: Not Given Sodium Chloride (Sodium Chloride 0.65% Na Soln 45 Ml (Rote)) 1 - 2 sprays NA PRN PRN PRN Reason: Nasal Dryness/Congestion Stop: 06/14/24 13:02 Trazodone HCl (Trazodone Hcl 50 Mg Tab) 50 mg PO HS SHIRLEY Stop: 06/17/24 21:59 Last Admin: 05/19/24 20:51 Dose: 50 mg Mental Health & Subst Abuse Tx Psychiatrist Name of Psychiatrist: Dr. Marie Psychiatrist's Date Of Appointment With Psychiatric Provider: 05/27/24 Time of Appointment with Psychiatrist: 11:30AM Therapist Name of Therapist: Samuel Harding ([address] [place] [address]) Therapist's Date of Therapist Appointment: 05/22/24 Time of Therapist Appointment: 9:30AM Therapy Appointment Comment: Virtual or in person appt available Director Community Organization Name of Director Community Organization: Denies Post Discharge Appointments Primary Care Physician Name Of Family Doctor/PCP: SANTIAGO
[2024-05-20] MEDS: LITHIUM CARBONATE 300 MG TAB PO SCH (17:27)
[2024-05-21 06:40] VITALS: BP 119/77; TEMP 97.9; O2SAT 97
--- NOTE | 2024-05-21 08:35 | Discharge Summary ---
Date of Service May 21, 2024 History of Present Illness Per admission H&P by Dr. Dailey: The patient reports having a "rough week" where he was worried about his academics because of a "string of bad tests" and forgetting that he had a test next week he was not prepared for. His mom came in that week and he noted feeling very low. Prior to admission he took whiskey and then the pills and then called for an ambulance after. He reports past suicide attempt 2 years ago where he attempted to hang himself and got close however "could not knock the chair". He was intoxicated at this time as well. Reports depression and anxiety since 2019 when COVID for started and his parents . Since then has complained of low mood, poor self-esteem, difficulties with sleep. Endorses fair appetite and fair concentration. Complains of an escalation of night terrors where he wakes up emotionally distraught with increased heart rate and shortness of breath. Reports difficulty in public situations where he feels constantly judged. Complains of panic attacks in social settings with shortness of breath, mental doom, and feels paralyzed. Reports panic symptoms and social anxiety impacts his relationships and social functioning. He often ruminates about past embarrassments, social failures, academic performance. He puts himself in "painful situations" and has considered self-harm however does not have the guts to do it. He questions his purpose and identity. Social problems have gotten worse since going to college because of the new environment. Previous home medications of Clonazepam 1mg TID, Lorazepam 0.5mg BID PRN. Recent nortriptyline 25 mg, perphenazine 6 mg 3 times daily, guanfacine 1 mg at bedtime, Seroquel at bedtime all discontinued prior to admission and placed on benzodiazepines only. Patient reports past trials of multiple SSRIs (worsening hand tremor), SNRI (worsening motor tics), beta-blockers contraindicated due to asthma. Has not tried lithium. Himrod sedated on Klonopin. Past medications include: Fluoxetine (worsening whole body tics), sertraline (worsening whole body tics), bupropion, duloxetine (worsening tics), mirtazapine (worsening tics), nortriptyline (25 mg low dose, may nightmares worse), quetiapine, lamotrigine, buspirone, hydroxyzine, lorazepam, clonazepam, melatonin, guanfacine (longstanding medication and effective for tics was recently discontinued). He grew up near [place]. Has 2 sisters who are supportive. Endorses a stable childhood with no neglect. He denies physical, emotional, sexual abuse. He reports having a high ego in middle school and often bullied others; as he grew up he judges himself for this became more self-conscious. Reports bullying others for acceptance. Suspected depression in father however untreated. He denies drug use currently, social drinker when drink a week. Historical marijuana and one time hallucinogen use. Parents in 2019. 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 He denies having any legal problems. Is not spiritual. No past intensive outpatient program. Has outpatient psychiatry and therapy in [place]. Physical Exam Vital Signs (Past 24 Hours) Last Vital Signs Temp 36.6 C 05/21/24 06:38 Pulse 69 05/21/24 06:38 Resp 16 05/21/24 06:38 BP 119/77 05/21/24 06:38 Pulse Ox 97 05/21/24 06:38 O2 Del Method Room Air 05/21/24 06:38 Principal Diagnosis Major Depressive Disorder with anxious distress Psychiatric Data See daily stay summary. In short, patient was engaged with the social/therapeutic milieu of the unit, safety was maintained and the patient was cooperative with care. Medication changes included initiation of [place] for depression and abilify off-label for anxiety and for depression augmentation as well as trazodone for insomnia and depression and lorazepam with goal of taper to discontinuation in the next 10-14 days for panic attacks prior to falling asleep and they tolerated this well. Recommend in the future goal of taper to discontinuation off benzodiazepines, if necessary would recommend use of 1-3 tabs per month as needed for severe panic attacks. Discussed importance of exposure work and CBT therapy. Baseline labs of fasting glucose, fasting lipid profile, and weight were preformed; baseline labs of thyroid function, kidney function, weight, electrolytes, CBC, and UA were preformed (see labwork results below). [place] level at discharge was 0.1 mmol/L. Recommend repeat lithium level, thyroid function and kidney function labwork at 6 months and then annually or anytime symptoms arise. Recommend repeat weight in one month. Recommend repeat fasting glucose, HbA1c and fasting lipid profile every 12 weeks and then annually. If symptoms arise recommend checking BP, EKG, prolactin level as clinically indicated or relevant. A support session was held and safety plan was completed prior to discharge. They participated in safety planning and in discussions about ways to seek support and recognizing warning signs and utilizing coping skills. Reviewed ways to have their safety plan and contacts easily available should thoughts of SI re-emerge in the future. Reviewed importance of seeking emergency care should SI intensify, worsen or should they feel unsafe in the future which they agree to do. On the day of discharge they stated their mood was "good" and "optimistic, feeling good about the future" and remained future-oriented including self-care (shaving after hospitalization), spending time with family, celebrating the holidays, doing a 5K turkey trot, going black monday shopping with his sister and engaging in aftercare appointments for psychiatry, therapy, IOP (once off the waitlist for [facility] and [employer] student care and advocacy. Discussed recommendation for CBT for insomnia in the future if sleep issues persist once at home. Day of Discharge Assessment Today the patient voices readiness for discharge. They note improvement in mood and anxiety. They deny thoughts of harm to self or others. Thoughts are organized and they are clinically improved from admission. There is no evidence of psychosis. They improved in the hospital with support and medication adjustments. They agree to take medications as prescribed and keep follow-up appointments. At the time of the discharge they are deemed to be stable and appropriate for outpatient level of care. They are not deemed to be at imminent risk of harm to self or others. They are aware of emergency and crisis services. Knows to call 911 or go to nearest emergency care center if in a crisis which cannot be handled as an outpatient. Suicide risk assessment: Acute risk is low given improvement in mood and denial of SI, lack of access to lethal means, some improvement in sleep, hopefulness, lessening of anxiety, future oriented. Chronic risk is moderate to high given some non-modifiable risk factors: psychiatric co-morbid diagnoses, periods of impulsivity, prior attempt, emotional reactivity, anxiety with panic attacks but also with protective factors including good social support, sense of responsibility to family and social supports, outpatient care in place, positive coping skills, positive problem solving, willingness to engage with treatment and self-observation. Counseled on ways to reduce acute and chronic risk including engaging with outpatient providers, using safety plan if needed, utilizing supports, taking medication, and using coping skills. Modifiable risk factors of SI, anxiety and depression were addressed during hospitalization through development of new coping skills, support meeting, safety planning, and medication adjustments. Discharge physical exam: See admission H&P, MSE per above and day of discharge summary. Overall, I spent a total of 35 minutes on this case including meeting with the patient, reviewing the chart, nursing report, multidisciplinary team meeting, discharge orders, anticipatory planning, safety planning, risk assessment and documentation. Transition of Care Transition Of Care Record: was reviewed with the patient Advance Directives Advance Directives Information Provided: Yes Advance Directives: No Mental Health Advance Directive: No Advance Directives on File: No Living Will: No Power of Application Systems Administrator: No Advance Directives Reason:: Declines as Mental Health Visit. Suicide Risk Level Suicide Risk Level Comments: Acute risk is low given denial of SI, see further assessment above Risk Factors Assessment Male: Yes : Yes Do You Have Access To A Gun?: No Health Problems: Yes (asthma) Mental Health Diagnoses: Yes Substance Use Disorders: No Previous Attempt: Yes Family History of Suicide: No Previous Psychiatric Hospitalization: No Hopelessness: No Protective Factors Assessment Muslim Beliefs: No : No Responsible for Young Children: No Employed: No Stable Relationships: Yes Supportive Family: Yes Good Rapport with Provider: Yes Absence of Any Risk Factors Above: No Discharge Data Lab Results 05/18/24 07:06 Estimat Average Glucose 97 Hemoglobin A1c 5.0 Triglycerides 114 Cholesterol 196 LDL Cholesterol, Calc 142 VLDL Cholesterol, Calc 23 HDL Cholesterol 31 Cholesterol/HDL Ratio 6.3 H Vitamin B12 563 25-OH Vitamin D Total 28.7 Hospital Course (1) Suicide attempt: (2) Generalized anxiety disorder with panic attacks: (3) MDD (major depressive disorder), recurrent episode, severe: (4) Benzodiazepine (tranquilizer) overdose: (5) Social anxiety disorder: (6) Panic attacks: (7) Asthma: Plan 05/21/2024: Tolerating medications, stable for discharge. 05/20/2024: Switch [place] dosing to with dinner. Continue current medications and tx plan. 05/19/2024: Increase lorazepam to 1mg prn. Li level for morning of 05/21/2024. 05/18/2024: Start trazodone 50mg HS and decrease lorazepam to 0.5mg prn for anxiety 05/17/2024: Start lithium 150 mg daily. Labs for fasting lipid profile, hemoglobin A1c, vitamin D, B12. 05/16/2024: The patient was admitted to the [facility] ([facility] mental health unit) on q15 min checks (behavioral with suicide precautions) for safety. The patient will participate in group, recreational, and milieu therapies and will be offered additional individual and family sessions as clinically appropriate. -Start Aripiprazole 5mg daily Mental Health & Subst Abuse Tx Psychiatrist Name of Psychiatrist: Dr. Marie Psychiatrist's Date Of Appointment With Psychiatric Provider: 05/27/24 Time of Appointment with Psychiatrist: 11:30AM Therapist Name of Therapist: Samuel Harding ([address] [facility] [address] [place] [address]) Therapist's Date of Therapist Appointment: 05/22/24 Time of Therapist Appointment: 9:30AM Therapy Appointment Comment: Virtual or in person appt available Box Stamper Name of Box Stamper: Joseluisies Post Discharge Appointments Primary Care Physician Name Of Family Doctor/PCP: SANTIAGO Other #1: Name of Aftercare Appointment: [facility] Assist [facility] Phone Number of Aftercare Appointment: Aftercare Appointment Comment: Contact for scheduling if interested #2: Name of Aftercare Appointment: [facility] Date of Aftercare Appointment: 05/27/24 Time of Aftercare Appointment: 10AM Aftercare Appointment Comment: [facility] post hosptialization meeting. They will email you video link #3: Name of Aftercare Appointment: [facility] Phone Number of Aftercare Appointment: Aftercare Appointment Comment: Referral submitted to add to waitlist. They will contact you Discharge Plan Discharge Items Patient Disposition: Home - Self-Care Reason For Visit: MAJOR DEPRESSIVE DISORDER Discharge Diagnosis: Major Depressive Disorder with anxious distress Activity: Resume your previous activity Non-emergency contact: Primary Care Provider, Psychiatrist and Therapist Call non-emergency contact if: you have any medication questions and your symptoms worsen Follow-up/Referrals: Luis Mariscal MD [Primary Care Provider] - Diet: Regular Addtl Attending Provider Instructions: Optional Mobile Apps we discussed: -Suicide safety plan -Virtual Hope Box -Headspace $ SPECIAL CARE INSTRUCTIONS: 1. Follow through with your scheduled aftercare appointments. If unable to keep an appointment, please call to reschedule. 2. Take your medication only as prescribed. Medication should not be changed or stopped without the approval of your doctor. In the event of worsening symptoms or concerns about side effects, contact your doctor immediately. 3. Utilize new healthy coping skills, anger management skills, and stress management skills learned during your hospitalization. Journal feelings and process them with a support person. Identify stressors or situations that may result in relapse, deterioration or inappropriate behaviors and develop a plan to deal with those issues. 4. If your coping skills are ineffective and you are in crisis, contact your outpatient providers for direction. If unable to reach your providers, please call the [facility] CRISIS LINE AT , go to the [facility] walk-in center at [address] [place] [address] A, [place], or go to the closest Emergency Room. 5. Avoid alcohol and un-prescribed drugs. 6. You have been provided with the Mental Health Advance Directives Pamphlet for your review. 7. Your condition is stable for discharge to outpatient level of care, but recovery is an ongoing process. Ifthoughts to harm yourself or others return, follow the safety plan developed during your stay. Planning for a safe return home includes securing weapons. Our treatment team recommends weaponsbe removed from the home until your outpatient provider reassesses your progress. In rare cases where the items themselvescannot be removed, guns and ammunitionshould be secured separatelyand keys stored by a reliable personoutside of the home. If you were admitted on an involuntary commitment, the police or other legal authorities may be involved in this process. AFTERCARE APPOINTMENTS: * Please call your insurance company prior to your scheduled appointment to confirm your aftercare providers are covered. Take your insurance information to your appointments. WHO TO CALL AND WHEN: Medical Emergencies: For questions or emergencies related to your hospital stay, please contact the Inpatient Behavioral Health Unit at [phone]. A mainframe systems engineer is on-call 16/01 for the Behavioral Health Unit for emergencies At any time you feel your situation is an emergency, you may also call 911 immediately. National Crisis Hotline: 988 Pending Studies at Discharge: No Stand-Alone Forms: [facility] Medications and DC Order Prescriptions: New aripiprazole [Abilify] 5 mg Tablet 5 mg PO QAM 7 Days Qty: 7 3RF lithium carbonate 150 mg capsule 150 mg PO DAILYBD 7 Days Qty: 7 3RF lorazepam 1 mg Tablet 1 mg PO HS PRN (Reason: panic attacks) 14 Days Qty: 11 0RF Rx Instructions: Take up to 1 tab nightly as needed for 7 days and then reduce to 0.5 tab nightly as needed trazodone 50 mg Tablet 50 mg PO HS 7 Days Qty: 7 3RF Discharge Orders: Discharge Order (Routine); Ordered 05/21/24 Ordered By: Arleth Bhandari Admission Data Admit Date/Time: 05/15/24 15:11 Attending Provider: Arleth Bhandari Admit Provider: Martin Dailey Primary Care Provider: Luis Mariscal Other Interventions: PSY Interdisciplinary Discharge Planning Last Done: 05/21/24 10:05 Discharge Summary Assessment (RN) Last Done: 05/21/24 11:10 Coding Level of Care Code 18572 D/C day mgmt > 30 min Diagnoses Suicide attempt T14.91XA Generalized anxiety disorder with panic attacks F41.1; F41.0 MDD (major depressive disorder), recurrent episode, severe F33.2 Benzodiazepine (tranquilizer) overdose T42.4X1A Social anxiety disorder F40.10 Panic attacks F41.0 Asthma J45.909
[2024-05-21 11:11] VITALS: PULSE 93
== END 2024-05-21 11:03 | disposition home or self-care (01) | DRG 885 ==
LOC: SUATTDRO 15:11 → 3S 15:11